=== PATIENT | male | born 1955 | race Caucasian/White ===

== ENCOUNTER → 2016-11-22 | Outpatient (REF) | payer MEDICARE ==
[~2016-11-22] MED LIST: /OXCA30TA OR; ACET50TA PO; ASPI-85 PO; ASPI1TAB PO; ASPI325T OR; ASPI81TA7 PO; CARV6.25 PO; CIPR500T3 PO; CLOP75TA2 PO; CORE6.25 PO; DEPA500T PO; FLOM5CAP PO; FOLI1TAB86 PO; KEPP1000 PO; LASI20TA PO; LISI-542 PO; MULTIVIT PO; NITR0.4D6 SL; OXCA300T PO; PERC5TAB8 PO; PERC7.5T8 PO; PLAV75TA2 PO; SPIR25TA2 PO; TRAZO50TA PO; TRIL600T PO; VITA100066 PO; VITA100T60 PO; VITA250011 SL; VITMTA PO; VYTO10TA41 PO; ZETI10TA2 PO; ZETI10TA21 PO; ZOCO20TA PO; vit b12 PO; vit d PO; vytorin
[2016-11-22 13:10] LABS: BASO % 0.6 % (0.0-1.0); EOS # 0.1 K/mm3 (0.0-0.50); EOS % 1.5 % (0.0-3.0); LARGE UNSTAINED CELL # 0.1 K/mm3 (0.0-0.4); LARGE UNSTAINED CELL % 1.4 % (0.0-4.0); LYMPH # 1.9 K/mm3 (1.5-4.5); LYMPH % 25.4 % (24.0-44.0); MEAN CORPUSCULAR HEMOGLOBIN 30.6 pg (27.0-33.0); MEAN CORPUSCULAR HGB CONC 33.2 g/dl (32.0-36.5); MEAN CORPUSCULAR VOLUME 92.1 fl (80.0-96.0); MONO # 0.4 K/mm3 (0.0-0.8); MONO % 5.9 % (0.0-5.0); NEUTROPHILS # 4.7 K/mm3 (1.8-7.7); NEUTROPHILS % 65.2 % (36.0-66.0); PLATELET COUNT, AUTOMATED 130 k/mm3 (150-450); RED CELL DISTRIBUTION WIDTH 13.4 % (11.5-14.5); WHITE BLOOD COUNT 7.2 K/mm3 (4.0-10.0)
[2016-11-22 13:23] LABS: ALBUMIN 4.6 GM/DL (3.2-5.2); ALBUMIN/GLOBULIN RATIO 1.48 (1.00-1.93); ALKALINE PHOSPHATASE 106 U/L (45-117); ALT/SGPT 11 U/L (12-78); ANION GAP 8 MEQ/L (8-16); AST/SGOT 19 U/L (15-37); BILIRUBIN,TOTAL 0.5 MG/DL (0.2-1.0); BLOOD UREA NITROGEN 29 MG/DL (7-18); CALCIUM LEVEL 9.2 MG/DL (8.5-10.1); CARBON DIOXIDE LEVEL 28 MEQ/L (21-32); CHLORIDE LEVEL 101 MEQ/L (98-107); CHOLESTEROL LEVEL 165 MG/DL (<200); CREATININE FOR GFR 1.02 MG/DL (0.70-1.30); GLOMERULAR FILTRATION RATE > 60.0 (>56); GLUCOSE, FASTING 98 MG/DL (70-105); MAGNESIUM LEVEL 2.4 MG/DL (1.8-2.4); POTASSIUM SERUM 4.4 MEQ/L (3.5-5.1); SODIUM LEVEL 137 MEQ/L (136-145); TOTAL PROTEIN 7.7 GM/DL (6.4-8.2); TRIGLYCERIDES LEVEL 82 MG/DL (<150)
== END ==
LOC: M SFHCPLAZ 08:56
PROVIDERS: ATTEND Family Medicine
DX: I50.22 Chronic systolic (congestive) heart failure (principal); E78.2 Mixed hyperlipidemia; R73.01 Impaired fasting glucose; G40.909 Epilepsy, unspecified, not intractable, without status epilepticus

== ENCOUNTER → 2017-01-01 | Outpatient (CLI) | payer MEDICARE ==
--- NOTE | 2017-01-01 09:47 | REP ---
Right upper quadrant sonography: History: Alcoholic liver disease. Comparison sonography June 30, 2016. Findings: Scanning through the right upper quadrant of the abdomen shows a normal sized thin-walled gallbladder without evidence of stone or polyp. Common bile duct is normal measuring 0.6 cm in greatest diameter. There is a 2.1 x 1.0 x 2.4 cm cyst in the posterior segment right lobe of the liver. This is visible on CT study from July 10, 2016. No other focal liver lesion is seen. There is no evidence of ascites today. The tail of the pancreas is obscured by abdominal gas. No pancreatic morphologic abnormality is seen. The right kidney measures 10.7 x 5.7 x 5.6 cm. No significant renal abnormality. Impression: There is improvement noted in that previously noted ascites is no longer apparent. A stable 2.4 cm cyst is seen in the right lobe of the liver. No other abnormality. Signed by Carl Salmeron MD 01/01/2017 12:08 P
== END ==
LOC: M RAD 07:58
PROVIDERS: ATTEND Family Medicine
DX: K70.9 Alcoholic liver disease, unspecified (principal)

== ENCOUNTER → 2017-04-16 | Outpatient (REF) | payer MEDICARE ==
[~2017-04-16] MED LIST changes: +KEPP10002 PO; -ZETI10TA2 PO; +ZETI10TA30 PO
[2017-04-16 11:51] LABS: EOS % 0.9 % (0.0-3.0); LARGE UNSTAINED CELL # 0.1 K/mm3 (0.0-0.4); LARGE UNSTAINED CELL % 1.8 % (0.0-4.0); LYMPH # 1.5 K/mm3 (1.5-4.5); LYMPH % 30.5 % (24.0-44.0); MEAN CORPUSCULAR HGB CONC 34.2 g/dl (32.0-36.5); MEAN CORPUSCULAR VOLUME 87.8 fl (80.0-96.0); MONO # 0.3 K/mm3 (0.0-0.8); NEUTROPHILS # 2.8 K/mm3 (1.8-7.7); NEUTROPHILS % 59.8 % (36.0-66.0); PLATELET COUNT, AUTOMATED 143 k/mm3 (150-450); RED CELL DISTRIBUTION WIDTH 12.9 % (11.5-14.5); WHITE BLOOD COUNT 4.6 K/mm3 (4.0-10.0)
[2017-04-16 11:57] LABS: INR 1.21
[2017-04-16 12:13] LABS: FERRITIN 133 NG/ML (26-388); PERCENT SATURATION 34.2 % (19.7-37.4); TOTAL IRON BINDING CAPACITY 322 UG/DL (250-450)
== END ==
LOC: M SFHCPLAZ 08:33
PROVIDERS: ATTEND Family Medicine
DX: K70.9 Alcoholic liver disease, unspecified (principal); E53.8 Deficiency of other specified B group vitamins; G40.909 Epilepsy, unspecified, not intractable, without status epilepticus

== ENCOUNTER → 2017-08-28 | Outpatient (REF) | payer MEDICARE ==
[2017-08-28 12:23] LABS: BASO % 0.6 % (0.0-1.0); EOS % 0.7 % (0.0-3.0); IMMATURE GRANULOCYTE % 0.4 % (0-0); LYMPH # 1.5 10^3/uL (1.5-4.5); LYMPH % 28.8 % (24.0-44.0); MEAN CORPUSCULAR HEMOGLOBIN 29.8 pg (27.0-33.0); MEAN CORPUSCULAR HGB CONC 34.7 g/dl (32.0-36.5); MEAN CORPUSCULAR VOLUME 85.9 fl (80.0-96.0); MONO # 0.4 10^3/uL (0.0-0.8); MONO % 8.1 % (0.0-5.0); NEUTROPHILS # 3.3 10^3/uL (1.8-7.7); NEUTROPHILS % 61.4 % (36.0-66.0); PLATELET COUNT, AUTOMATED 149 10^3/uL (150-450); RED CELL DISTRIBUTION WIDTH 13.3 % (11.5-14.5); WHITE BLOOD COUNT 5.3 10^3/uL (4.0-10.0)
[2017-08-28 12:44] LABS: VITAMIN B12 LEVEL > 2000 PG/ML (247-911)
[2017-08-28 12:54] LABS: ALBUMIN 4.4 GM/DL (3.2-5.2); ALBUMIN/GLOBULIN RATIO 1.52 (1.00-1.93); ALKALINE PHOSPHATASE 98 U/L (45-117); ALT/SGPT 12 U/L (12-78); ANION GAP 8 MEQ/L (8-16); AST/SGOT 20 U/L (7-37); BILIRUBIN,TOTAL 0.5 MG/DL (0.2-1.0); BLOOD UREA NITROGEN 12 MG/DL (7-18); CALCIUM LEVEL 9.1 MG/DL (8.8-10.2); CARBON DIOXIDE LEVEL 26 MEQ/L (21-32); CHLORIDE LEVEL 101 MEQ/L (98-107); CHOLESTEROL LEVEL 136 MG/DL (<200); CREATININE FOR GFR 0.78 MG/DL (0.70-1.30); FERRITIN 107 NG/ML (26-388); GLOMERULAR FILTRATION RATE > 60.0 (>49); GLUCOSE, FASTING 89 MG/DL (80-110); PERCENT SATURATION 22.4 % (19.7-50.0); POTASSIUM SERUM 4.6 MEQ/L (3.5-5.1); SODIUM LEVEL 135 MEQ/L (136-145); TOTAL IRON BINDING CAPACITY 335 UG/DL (250-450); TOTAL PROTEIN 7.3 GM/DL (6.4-8.2); TRIGLYCERIDES LEVEL 60 MG/DL (<150)
== END ==
LOC: M SFHCPLAZ 08:40
PROVIDERS: ATTEND Family Medicine
DX: G40.909 Epilepsy, unspecified, not intractable, without status epilepticus (principal); E78.2 Mixed hyperlipidemia; D50.9 Iron deficiency anemia, unspecified; N40.1 Benign prostatic hyperplasia with lower urinary tract symptoms; E53.8 Deficiency of other specified B group vitamins; Z79.899 Other long term (current) drug therapy
CPT/HCPCS: 36415; 80053; 80061; 82550; 82607; 82728; 83036; 83550; 85025; 86140; G0103

== ENCOUNTER → 2017-12-11 | Outpatient (REF) | payer MEDICARE ==
[2017-12-11 11:12] LABS: BASO % 0.5 % (0.0-1.0); EOS # 0.1 10^3/uL (0.0-0.50); EOS % 0.9 % (0.0-3.0); HEMATOCRIT 42.7 % (42.0-52.0); HEMOGLOBIN 14.5 g/dl (14.0-18.0); IMMATURE GRANULOCYTE % 0.5 % (0-3.0); LYMPH # 1.9 10^3/uL (1.5-4.5); LYMPH % 28.5 % (24.0-44.0); MEAN CORPUSCULAR HEMOGLOBIN 29.4 pg (27.0-33.0); MEAN CORPUSCULAR VOLUME 86.6 fl (80.0-96.0); MONO # 0.5 10^3/uL (0.0-0.8); MONO % 7.7 % (0.0-5.0); NEUTROPHILS % 61.9 % (36.0-66.0); PLATELET COUNT, AUTOMATED 153 10^3/uL (150-450); RED BLOOD COUNT 4.93 10^6/uL (4.30-6.10); RED CELL DISTRIBUTION WIDTH 13.3 % (11.5-14.5); WHITE BLOOD COUNT 6.5 10^3/uL (4.0-10.0)
[2017-12-11 11:23] LABS: ALBUMIN 4.5 GM/DL (3.2-5.2); ALBUMIN/GLOBULIN RATIO 1.36 (1.00-1.93); ALKALINE PHOSPHATASE 104 U/L (45-117); ALT/SGPT 11 U/L (12-78); ANION GAP 8 MEQ/L (8-16); AST/SGOT 18 U/L (7-37); BILIRUBIN,TOTAL 0.7 MG/DL (0.2-1.0); BLOOD UREA NITROGEN 17 MG/DL (7-18); CALCIUM LEVEL 9.4 MG/DL (8.8-10.2); CARBON DIOXIDE LEVEL 27 MEQ/L (21-32); CHLORIDE LEVEL 97 MEQ/L (98-107); CREATININE FOR GFR 0.84 MG/DL (0.70-1.30); FERRITIN 76 NG/ML (26-388); GLOMERULAR FILTRATION RATE > 60.0 (>49); GLUCOSE, FASTING 87 MG/DL (70-100); IRON (FE) 106 UG/DL (65-175); MAGNESIUM LEVEL 2.1 MG/DL (1.8-2.4); PERCENT SATURATION 28.9 % (19.7-50.0); POTASSIUM SERUM 4.6 MEQ/L (3.5-5.1); SODIUM LEVEL 132 MEQ/L (136-145); TOTAL IRON BINDING CAPACITY 367 UG/DL (250-450); TOTAL PROTEIN 7.8 GM/DL (6.4-8.2)
[2017-12-11 11:24] LABS: HEMATOCRIT 42.7 % (42.0-52.0)
[2017-12-11 13:18] LABS: PRETREATED FOLATE FOR RBCFOL 13.8 NG/ML; RBC FOLATE 678.7 NG/ML (280-791)
== END ==
LOC: M SFHCPLAZ 08:26
DX: K70.9 Alcoholic liver disease, unspecified (principal); D50.9 Iron deficiency anemia, unspecified; G40.909 Epilepsy, unspecified, not intractable, without status epilepticus; I10 Essential (primary) hypertension; E53.8 Deficiency of other specified B group vitamins
CPT/HCPCS: 83550

== ENCOUNTER → 2018-04-11 | Outpatient (REF) | payer MEDICARE ==
[2018-04-11 12:47] LABS: BASO % 0.4 % (0.0-1.0); EOS # 0.1 10^3/uL (0.0-0.50); EOS % 1.4 % (0.0-3.0); HEMATOCRIT 40.7 % (42.0-52.0); HEMOGLOBIN 14.2 g/dl (13.5-17.5); IMMATURE GRANULOCYTE % 0.4 % (0-3.0); LYMPH # 1.5 10^3/uL (1.5-4.5); MEAN CORPUSCULAR HEMOGLOBIN 29.8 pg (27.0-33.0); MEAN CORPUSCULAR HGB CONC 34.9 g/dl (32.0-36.5); MEAN CORPUSCULAR VOLUME 85.3 fl (80.0-96.0); MONO # 0.4 10^3/uL (0.0-0.8); MONO % 7.7 % (0.0-5.0); NEUTROPHILS % 60.1 % (36.0-66.0); PLATELET COUNT, AUTOMATED 155 10^3/uL (150-450); RED BLOOD COUNT 4.77 10^6/uL (4.30-6.10); RED CELL DISTRIBUTION WIDTH 13.2 % (11.5-14.5)
[2018-04-11 13:08] LABS: VITAMIN B12 LEVEL 1806 PG/ML (247-911)
[2018-04-11 13:20] LABS: ALBUMIN 4.3 GM/DL (3.2-5.2); ALBUMIN/GLOBULIN RATIO 1.54 (1.00-1.93); ALKALINE PHOSPHATASE 100 U/L (45-117); ALT/SGPT 15 U/L (12-78); ANION GAP 8 MEQ/L (8-16); AST/SGOT 13 U/L (7-37); BILIRUBIN,TOTAL 0.6 MG/DL (0.2-1.0); BLOOD UREA NITROGEN 10 MG/DL (7-18); C REACTIVE PROTEIN QUANTITATIV < 0.30 MG/DL (0.00-0.30); CALCIUM LEVEL 9.1 MG/DL (8.8-10.2); CARBON DIOXIDE LEVEL 27 MEQ/L (21-32); CHLORIDE LEVEL 95 MEQ/L (98-107); CHOLESTEROL LEVEL 130 MG/DL (<200); CHOLESTEROL RISK RATIO 2.131 (<5); CPK CREATINE PHOSPHOKINASE 133 U/L (39-308); CREATININE FOR GFR 0.73 MG/DL (0.70-1.30); GLOMERULAR FILTRATION RATE > 60.0 (>49); GLUCOSE, FASTING 88 MG/DL (70-100); HDL CHOLESTEROL 61 MG/DL (>40); LDL CHOLESTEROL 58.6 MG/DL (<100); NON-HDL-C 69 MG/DL; POTASSIUM SERUM 4.6 MEQ/L (3.5-5.1); PSA SCREENING 0.16 NG/ML (< 4.0); SODIUM LEVEL 130 MEQ/L (136-145); TOTAL PROTEIN 7.1 GM/DL (6.4-8.2); TRIGLYCERIDES LEVEL 52 MG/DL (<150)
[2018-04-11 13:53] LABS: ESTIMATED AVERAGE GLUCOSE 128 MG/DL (60-110); HEMOGLOBIN A1c 6.1 %
[2018-04-15 08:06] LABS: LEVETIRACETAM (KEPPRA) 31.4 ug/mL (10.0-40.0)
[2018-04-15 08:06] LABS: OXCARBAZEPINE 38 ug/mL (10-35)
== END ==
LOC: M SFHCPLAZ 08:24
DX: G40.909 Epilepsy, unspecified, not intractable, without status epilepticus (principal); R73.01 Impaired fasting glucose; Z12.5 Encounter for screening for malignant neoplasm of prostate; E53.8 Deficiency of other specified B group vitamins; Z79.899 Other long term (current) drug therapy
CPT/HCPCS: 82550

== ENCOUNTER 2018-05-21 21:56 | Emergency (ER) | payer MEDICARE ==
[2018-05-21] MEDS ORDERED: ONDANSETRON 4MG/2ML VIAL (J2405) As Ordered (22:29)
[2018-05-22] MEDS: NS 1,000 ML IV (00:15)
[2018-05-22] MEDS: ONDANSETRON 4MG/2ML VIAL (J2405) IV (00:15)
[2018-05-22 00:43] LABS: BASO % 0.4 % (0.0-1.0); EOS # 0.1 10^3/uL (0.0-0.50); HEMATOCRIT 37.5 % (42.0-52.0); HEMOGLOBIN 13.7 g/dl (13.5-17.5); IMMATURE GRANULOCYTE % 0.5 % (0-3.0); LYMPH # 2.2 10^3/uL (1.5-4.5); LYMPH % 22.4 % (24.0-44.0); MEAN CORPUSCULAR HEMOGLOBIN 30.2 pg (27.0-33.0); MEAN CORPUSCULAR HGB CONC 36.5 g/dl (32.0-36.5); MEAN CORPUSCULAR VOLUME 82.6 fl (80.0-96.0); MONO # 0.5 10^3/uL (0.0-0.8); NEUTROPHILS % 70.7 % (36.0-66.0); PLATELET COUNT, AUTOMATED 146 10^3/uL (150-450); RED BLOOD COUNT 4.54 10^6/uL (4.30-6.10); RED CELL DISTRIBUTION WIDTH 12.9 % (11.5-14.5); WHITE BLOOD COUNT 9.9 10^3/uL (4.0-10.0)
[2018-05-22 00:53] LABS: ALBUMIN 4.2 GM/DL (3.2-5.2); ALBUMIN/GLOBULIN RATIO 1.31 (1.00-1.93); ALKALINE PHOSPHATASE 91 U/L (45-117); ALT/SGPT 12 U/L (12-78); ANION GAP 12 MEQ/L (8-16); AST/SGOT 23 U/L (7-37); BILIRUBIN,DIRECT 0.2 MG/DL (0.0-0.2); BILIRUBIN,TOTAL 0.7 MG/DL (0.2-1.0); BLOOD UREA NITROGEN 11 MG/DL (7-18); CALCIUM LEVEL 8.7 MG/DL (8.8-10.2); CARBON DIOXIDE LEVEL 21 MEQ/L (21-32); CHLORIDE LEVEL 88 MEQ/L (98-107); CREATININE FOR GFR 0.63 MG/DL (0.70-1.30); GLOMERULAR FILTRATION RATE > 60.0 (>49); GLUCOSE, FASTING 146 MG/DL (70-100); LIPASE 114 U/L (73-393); POTASSIUM SERUM 4.6 MEQ/L (3.5-5.1); SODIUM LEVEL 121 MEQ/L (136-145); TOTAL PROTEIN 7.4 GM/DL (6.4-8.2)
[2018-05-22] MEDS: MORPHINE 2 MG/ML 1ML SYRINGE (J2270) IV (03:23)
[2018-05-22] MEDS: MECLIZINE 25 MG TABLET PO (03:29)
== END 2018-05-22 03:35 | disposition home or self-care (01) ==
LOC: M ED 05-22 03:35
DX: R42 Dizziness and giddiness (principal); R11.0 Nausea; T45.7X5A Adverse effect of anticoagulant antagonists, vitamin K and other coagulants, initial encounter; X58.XXXA Exposure to other specified factors, initial encounter; Y92.89 Other specified places as the place of occurrence of the external cause; E86.9 Volume depletion, unspecified; I10 Essential (primary) hypertension; I48.91 Unspecified atrial fibrillation; I25.10 Atherosclerotic heart disease of native coronary artery without angina pectoris; E78.5 Hyperlipidemia, unspecified; G40.909 Epilepsy, unspecified, not intractable, without status epilepticus; K74.60 Unspecified cirrhosis of liver; F10.10 Alcohol abuse, uncomplicated; Z79.899 Other long term (current) drug therapy; Z79.01 Long term (current) use of anticoagulants; Z79.82 Long term (current) use of aspirin; F17.210 Nicotine dependence, cigarettes, uncomplicated

== ENCOUNTER 2018-05-23 08:53 | Inpatient (IN) | payer MEDICARE ==
[2018-05-23 10:38] LABS: BASO % 0.4 % (0.0-1.0); EOS # 0.1 10^3/uL (0.0-0.50); HEMOGLOBIN 14.3 g/dl (13.5-17.5); IMMATURE GRANULOCYTE % 0.5 % (0-3.0); LYMPH # 1.4 10^3/uL (1.5-4.5); LYMPH % 18.2 % (24.0-44.0); MEAN CORPUSCULAR HEMOGLOBIN 29.5 pg (27.0-33.0); MEAN CORPUSCULAR HGB CONC 35.8 g/dl (32.0-36.5); MEAN CORPUSCULAR VOLUME 82.6 fl (80.0-96.0); MONO # 0.5 10^3/uL (0.0-0.8); NEUTROPHILS # 5.7 10^3/uL (1.8-7.7); NEUTROPHILS % 72.9 % (36.0-66.0); PLATELET COUNT, AUTOMATED 150 10^3/uL (150-450); RED BLOOD COUNT 4.84 10^6/uL (4.30-6.10); RED CELL DISTRIBUTION WIDTH 12.8 % (11.5-14.5); WHITE BLOOD COUNT 7.8 10^3/uL (4.0-10.0)
[2018-05-23 11:04] LABS: ERYTHROCYTE SEDIMENTATION RATE 3 mm/hr (0-20)
[2018-05-23 11:06] LABS: ANION GAP 9 MEQ/L (8-16); BLOOD UREA NITROGEN 10 MG/DL (7-18); C REACTIVE PROTEIN QUANTITATIV < 0.30 MG/DL (0.00-0.30); CALCIUM LEVEL 8.8 MG/DL (8.8-10.2); CARBON DIOXIDE LEVEL 26 MEQ/L (21-32); CHLORIDE LEVEL 87 MEQ/L (98-107); GLOMERULAR FILTRATION RATE > 60.0 (>49); GLUCOSE, FASTING 104 MG/DL (70-100); SODIUM LEVEL 122 MEQ/L (136-145)
[2018-05-23] MEDS: NS 1,000 ML IV (11:07)
[2018-05-23 11:49] LABS: ALBUMIN 4.6 GM/DL (3.2-5.2); ALBUMIN/GLOBULIN RATIO 1.39 (1.00-1.93); ALKALINE PHOSPHATASE 100 U/L (45-117); ALT/SGPT 11 U/L (12-78); AST/SGOT 22 U/L (7-37); BILIRUBIN,DIRECT 0.3 MG/DL (0.0-0.2); BILIRUBIN,TOTAL 0.9 MG/DL (0.2-1.0); TOTAL PROTEIN 7.9 GM/DL (6.4-8.2)
[2018-05-23 12:17] LABS: FREE T4 0.95 NG/DL (0.76-1.46)
[2018-05-23] MEDS: ONDANSETRON 4MG/2ML VIAL (J2405) IV (12:58)
[2018-05-23 13:31] LABS: OSMOLALITY SERUM 253 MOSM/KG (275-295)
[2018-05-23 13:33] LABS: OSMOLALITY URINE 404 MOSM/KG (500-800)
[2018-05-23 14:15] LABS: SODIUM,RANDOM URINE 117 MEQ/L
[2018-05-23] MEDS ORDERED: ONDANSETRON 4 MG TAB (S0181) PO (17:45)
[2018-05-23] MEDS ORDERED: LORazepam 2 MG/ML VIAL (J2060) IV (17:45)
[2018-05-23] MEDS: PRAVASTATIN 20 MG TAB PO (21:01)
[2018-05-23] MEDS: APIXABAN 5 MG TAB (ELIQUIS) PO (21:01)
[2018-05-23] MEDS: OXcarbazepine 300 MG TAB PO (21:01)
[2018-05-23] MEDS: levETIRAcetam 250MG TABLET (KEPPRA) PO (21:02)
[2018-05-23] MEDS: CARVedilol 3.125 MG TAB PO (21:02)
[2018-05-23] MEDS: traZODone 50 MG TAB PO (23:43)
[2018-05-24 06:16] LABS: HEMOGLOBIN 13.2 g/dl (13.5-17.5); MEAN CORPUSCULAR HEMOGLOBIN 29.5 pg (27.0-33.0); MEAN CORPUSCULAR HGB CONC 35.7 g/dl (32.0-36.5); MEAN CORPUSCULAR VOLUME 82.6 fl (80.0-96.0); PLATELET COUNT, AUTOMATED 111 10^3/uL (150-450); RED BLOOD COUNT 4.48 10^6/uL (4.30-6.10); RED CELL DISTRIBUTION WIDTH 12.9 % (11.5-14.5); WHITE BLOOD COUNT 6.4 10^3/uL (4.0-10.0)
[2018-05-24 06:30] LABS: ANION GAP 12 MEQ/L (8-16); BLOOD UREA NITROGEN 10 MG/DL (7-18); CALCIUM LEVEL 8.3 MG/DL (8.8-10.2); CARBON DIOXIDE LEVEL 23 MEQ/L (21-32); CHLORIDE LEVEL 94 MEQ/L (98-107); CREATININE FOR GFR 0.65 MG/DL (0.70-1.30); GLOMERULAR FILTRATION RATE > 60.0 (>49); GLUCOSE, FASTING 76 MG/DL (70-100); MAGNESIUM LEVEL 1.9 MG/DL (1.8-2.4); SODIUM LEVEL 129 MEQ/L (136-145); URIC ACID 2.6 MG/DL (3.5-7.2)
[2018-05-24] MEDS: ASPIRIN 81 MG ENTERIC TAB PO (08:28)
[2018-05-24] MEDS: levETIRAcetam 250MG TABLET (KEPPRA) PO ×2 (08:28→20:00)
[2018-05-24] MEDS: MULTIVITAMINS/MINERALS THERAP 1 TAB PO (08:28)
[2018-05-24] MEDS: CYANOCOBALAMIN 500 MCG TAB PO (08:29)
[2018-05-24] MEDS: VITAMIN D 1,000 INTERNATIONAL UNITS TABLET PO (08:29)
[2018-05-24] MEDS: FINASTERIDE 5 MG TAB PO (08:29)
[2018-05-24] MEDS: APIXABAN 5 MG TAB (ELIQUIS) PO ×2 (08:29→20:01)
[2018-05-24] MEDS: SPIRONOLACTONE 25 MG TAB PO (08:29)
[2018-05-24] MEDS: CARVedilol 3.125 MG TAB PO ×2 (08:30→20:01)
[2018-05-24] MEDS: LISINOPRIL 5 MG TAB PO (08:31)
[2018-05-24] MEDS: EZETIMIBE 10 MG TAB (ZETIA) PO (08:31)
[2018-05-24] MEDS: OXcarbazepine 300 MG TAB PO ×2 (11:18→20:01)
[2018-05-24] MEDS: ACETAMINOPHEN TAB 650MG DOSE (2X325MG) PO (19:59)
[2018-05-24] MEDS: PRAVASTATIN 20 MG TAB PO (20:00)
[2018-05-24] MEDS: traZODone 50 MG TAB PO (23:18)
[2018-05-25] MEDS: OXcarbazepine 300 MG TAB PO (10:10)
[2018-05-25] MEDS: FINASTERIDE 5 MG TAB PO (10:10)
[2018-05-25] MEDS: CARVedilol 3.125 MG TAB PO (10:10)
[2018-05-25] MEDS: LISINOPRIL 5 MG TAB PO (10:11)
[2018-05-25] MEDS: APIXABAN 5 MG TAB (ELIQUIS) PO (10:11)
[2018-05-25] MEDS: ASPIRIN 81 MG ENTERIC TAB PO (10:11)
[2018-05-25] MEDS: levETIRAcetam 250MG TABLET (KEPPRA) PO (10:11)
[2018-05-25] MEDS: MULTIVITAMINS/MINERALS THERAP 1 TAB PO (10:12)
[2018-05-25] MEDS: SPIRONOLACTONE 25 MG TAB PO (10:12)
[2018-05-25] MEDS: ACETAMINOPHEN TAB 650MG DOSE (2X325MG) PO (10:13)
[2018-05-25] MEDS: VITAMIN D 1,000 INTERNATIONAL UNITS TABLET PO (10:13)
[2018-05-25] MEDS: EZETIMIBE 10 MG TAB (ZETIA) PO (10:13)
[2018-05-25] MEDS: CYANOCOBALAMIN 500 MCG TAB PO (10:13)
[2018-05-25 10:51] LABS: ANION GAP 9 MEQ/L (8-16); BLOOD UREA NITROGEN 9 MG/DL (7-18); CARBON DIOXIDE LEVEL 27 MEQ/L (21-32); CHLORIDE LEVEL 97 MEQ/L (98-107); CREATININE FOR GFR 0.74 MG/DL (0.70-1.30); GLOMERULAR FILTRATION RATE > 60.0 (>49); GLUCOSE, FASTING 109 MG/DL (70-100); POTASSIUM SERUM 3.8 MEQ/L (3.5-5.1); SODIUM LEVEL 133 MEQ/L (136-145)
[2018-05-27 10:51] LABS: OXCARBAZEPINE 59 ug/mL (10-35)
== END 2018-05-25 12:25 | disposition home or self-care (01) | DRG 644 ==
LOC: M ED 08:53 → M ED INP 17:44 → M MSPAV 19:51
DX: E22.2 Syndrome of inappropriate secretion of antidiuretic hormone (principal); I50.22 Chronic systolic (congestive) heart failure; G40.89 Other seizures; I25.5 Ischemic cardiomyopathy; I65.29 Occlusion and stenosis of unspecified carotid artery; I25.10 Atherosclerotic heart disease of native coronary artery without angina pectoris; I11.0 Hypertensive heart disease with heart failure; T42.1X5A Adverse effect of iminostilbenes, initial encounter; E78.5 Hyperlipidemia, unspecified; I48.0 Paroxysmal atrial fibrillation; I69.398 Other sequelae of cerebral infarction; Z79.01 Long term (current) use of anticoagulants; Z79.82 Long term (current) use of aspirin; Z79.899 Other long term (current) drug therapy; Z95.1 Presence of aortocoronary bypass graft; Z87.891 Personal history of nicotine dependence

== ENCOUNTER → 2018-05-27 | Outpatient (REF) | payer MEDICARE ==
[2018-05-28 00:13] LABS: ALBUMIN 4.6 GM/DL (3.2-5.2); ALKALINE PHOSPHATASE 93 U/L (45-117); ALT/SGPT 13 U/L (12-78); ANION GAP 8 MEQ/L (8-16); AST/SGOT 20 U/L (7-37); BILIRUBIN,TOTAL 0.5 MG/DL (0.2-1.0); BLOOD UREA NITROGEN 15 MG/DL (7-18); CALCIUM LEVEL 9.7 MG/DL (8.8-10.2); CARBON DIOXIDE LEVEL 27 MEQ/L (21-32); CHLORIDE LEVEL 99 MEQ/L (98-107); CREATININE FOR GFR 0.86 MG/DL (0.70-1.30); GLOMERULAR FILTRATION RATE > 60.0 (>49); GLUCOSE, FASTING 108 MG/DL (70-100); POTASSIUM SERUM 4.5 MEQ/L (3.5-5.1); SODIUM LEVEL 134 MEQ/L (136-145); TOTAL PROTEIN 7.6 GM/DL (6.4-8.2)
[2018-05-28 00:50] LABS: ALBUMIN/GLOBULIN RATIO 1.53 (1.00-1.93)
[2018-05-30 00:07] LABS: OXCARBAZEPINE 20 ug/mL (10-35)
[2018-05-30 00:07] LABS: LEVETIRACETAM (KEPPRA) 30.4 ug/mL (10.0-40.0)
== END ==
LOC: M SFHCPLAZ 10:43
DX: E87.1 Hypo-osmolality and hyponatremia (principal); G40.909 Epilepsy, unspecified, not intractable, without status epilepticus
CPT/HCPCS: 80053

== ENCOUNTER 2018-05-28 11:46 | Emergency (ER) | payer MEDICARE ==
[2018-05-28] MEDS ORDERED: NITROGLYCERIN 0.4 MG SUBL TABLET SL (12:15)
[2018-05-28] MEDS: NS 1,000 ML IV (12:18)
[2018-05-28] MEDS: ASPIRIN 81 MG CHEW TABLET PO (12:20)
[2018-05-28 12:32] LABS: BASO # 0.1 10^3/uL (0.0-0.2); BASO % 0.9 % (0.0-1.0); EOS # 0.1 10^3/uL (0.0-0.50); EOS % 1.4 % (0.0-3.0); HEMATOCRIT 45.5 % (42.0-52.0); HEMOGLOBIN 15.9 g/dl (13.5-17.5); IMMATURE GRANULOCYTE % 0.3 % (0-3.0); LYMPH # 2.9 10^3/uL (1.5-4.5); LYMPH % 37.7 % (24.0-44.0); MEAN CORPUSCULAR HEMOGLOBIN 29.7 pg (27.0-33.0); MEAN CORPUSCULAR HGB CONC 34.9 g/dl (32.0-36.5); MEAN CORPUSCULAR VOLUME 84.9 fl (80.0-96.0); MONO # 0.7 10^3/uL (0.0-0.8); MONO % 9.6 % (0.0-5.0); NEUTROPHILS # 3.8 10^3/uL (1.8-7.7); NEUTROPHILS % 50.1 % (36.0-66.0); PLATELET COUNT, AUTOMATED 177 10^3/uL (150-450); RED BLOOD COUNT 5.36 10^6/uL (4.30-6.10); RED CELL DISTRIBUTION WIDTH 13.6 % (11.5-14.5); WHITE BLOOD COUNT 7.6 10^3/uL (4.0-10.0)
[2018-05-28 12:53] LABS: INR 1.19; PROTHROMBIN TIME 15.3 SECONDS (12.1-14.4)
[2018-05-28 13:08] LABS: ANION GAP 7 MEQ/L (8-16); BLOOD UREA NITROGEN 15 MG/DL (7-18); CALCIUM LEVEL 9.7 MG/DL (8.8-10.2); CARBON DIOXIDE LEVEL 25 MEQ/L (21-32); CHLORIDE LEVEL 99 MEQ/L (98-107); CPK CREATINE PHOSPHOKINASE 157 U/L (39-308); CREATININE FOR GFR 0.79 MG/DL (0.70-1.30); GLOMERULAR FILTRATION RATE > 60.0 (>49); GLUCOSE, FASTING 102 MG/DL (70-100); MB/CK RELATIVE INDEX 1.97 (< OR =4); NT-PRO BNP 955 PG/ML (<125); POTASSIUM SERUM 4.1 MEQ/L (3.5-5.1); SODIUM LEVEL 131 MEQ/L (136-145); TROPONIN I 0.02 NG/ML (< 0.10)
[2018-05-28] MEDS ORDERED: diphenhydrAMINE INJ 50MG/ML VIAL (J1200) As Ordered (13:26)
[2018-05-28] MEDS ORDERED: METOCLOPRAMIDE INJ 10MG/2ML VIAL (J2765) As Ordered (13:26)
[2018-05-28] MEDS: diphenhydrAMINE INJ 50MG/ML VIAL (J1200) IV (13:31)
[2018-05-28] MEDS: METOCLOPRAMIDE INJ 10MG/2ML VIAL (J2765) IV (13:33)
== END 2018-05-28 14:09 | disposition home or self-care (01) ==
LOC: M ED 11:46
DX: I10 Essential (primary) hypertension (principal); R51 Headache; E78.5 Hyperlipidemia, unspecified; R56.9 Unspecified convulsions; Z95.0 Presence of cardiac pacemaker; Z87.891 Personal history of nicotine dependence; Z79.899 Other long term (current) drug therapy; Z79.82 Long term (current) use of aspirin; Z79.01 Long term (current) use of anticoagulants
CPT/HCPCS: J1200

== ENCOUNTER → 2018-06-07 | Outpatient (REF) | payer MEDICARE ==
[2018-06-07 10:58] LABS: BASO % 0.5 % (0.0-1.0); EOS # 0.1 10^3/uL (0.0-0.50); EOS % 0.8 % (0.0-3.0); HEMATOCRIT 46.4 % (42.0-52.0); HEMOGLOBIN 15.6 g/dl (13.5-17.5); IMMATURE GRANULOCYTE % 0.3 % (0-3.0); LYMPH # 1.7 10^3/uL (1.5-4.5); LYMPH % 27.6 % (24.0-44.0); MEAN CORPUSCULAR HEMOGLOBIN 29.3 pg (27.0-33.0); MEAN CORPUSCULAR HGB CONC 33.6 g/dl (32.0-36.5); MEAN CORPUSCULAR VOLUME 87.2 fl (80.0-96.0); MONO # 0.4 10^3/uL (0.0-0.8); MONO % 6.7 % (0.0-5.0); NEUTROPHILS % 64.1 % (36.0-66.0); PLATELET COUNT, AUTOMATED 173 10^3/uL (150-450); RED BLOOD COUNT 5.32 10^6/uL (4.30-6.10); RED CELL DISTRIBUTION WIDTH 13.1 % (11.5-14.5); WHITE BLOOD COUNT 6.3 10^3/uL (4.0-10.0)
[2018-06-07 10:59] LABS: AMORPHOUS SEDIMENT SMALL (NEGATIVE); APPEARANCE, URINE HAZY (CLEAR); BACTERIA, URINE AUTO NEGATIVE (NEGATIVE); BILIRUBIN, URINE AUTO NEGATIVE (NEGATIVE); BLOOD, URINE BLOOD NEGATIVE (NEGATIVE); COLOR, URINE AMBER (YELLOW); GLUCOSE, URINE (UA) AUTO NEGATIVE (NEGATIVE); KETONE, URINE AUTO NEGATIVE (NEGATIVE); LEUKOCYTE ESTERASE, URINE AUTO NEGATIVE (NEGATIVE); MUCUS, URINE SMALL (NEGATIVE); NITRITE, URINE AUTO NEGATIVE (NEGATIVE); PROTEIN, URINE AUTO NEGATIVE (NEGATIVE); RBC, URINE AUTO 5 /HPF (0-3); SPECIFIC GRAVITY URINE AUTO 1.018 (1.002-1.035); SQUAMOUS EPITHELIAL CELL UR AU 0 /HPF (0-6); UROBILINOGEN, URINE AUTO 0.2 mg/dL (0.0-2.0); WBC, URINE AUTO 1 /HPF (0-3)
[2018-06-07 11:07] LABS: INR 1.16
[2018-06-07 11:08] LABS: PARTIAL THROMBOPLASTIN TIME 31.6 SECONDS (25.4-37.6)
[2018-06-07 11:17] LABS: ALBUMIN 4.8 GM/DL (3.2-5.2); ALBUMIN/GLOBULIN RATIO 1.45 (1.00-1.93); ALKALINE PHOSPHATASE 101 U/L (45-117); ALT/SGPT 14 U/L (12-78); ANION GAP 10 MEQ/L (8-16); AST/SGOT 15 U/L (7-37); BILIRUBIN,TOTAL 0.6 MG/DL (0.2-1.0); BLOOD UREA NITROGEN 11 MG/DL (7-18); CALCIUM LEVEL 9.9 MG/DL (8.8-10.2); CARBON DIOXIDE LEVEL 26 MEQ/L (21-32); CHLORIDE LEVEL 99 MEQ/L (98-107); CREATININE FOR GFR 0.82 MG/DL (0.70-1.30); GLOMERULAR FILTRATION RATE > 60.0 (>49); GLUCOSE, FASTING 91 MG/DL (70-100); POTASSIUM SERUM 4.9 MEQ/L (3.5-5.1); SODIUM LEVEL 135 MEQ/L (136-145); TOTAL PROTEIN 8.1 GM/DL (6.4-8.2)
[2018-06-07 11:28] LABS: MALB URINE SIEMENS 23.8 MG/L
[2018-06-07 11:29] LABS: ALPHA FETOPROTEIN TUMOR QUANT < 1.3 NG/ML (<8.1); ESTIMATED AVERAGE GLUCOSE 117 MG/DL (60-110); HEMOGLOBIN A1c 5.7 %
[2018-06-07 11:34] LABS: MAU/CREAT RATIO 14.1 MCG/MG (0.0-30.0)
[2018-06-08 15:36] LABS: INSULIN LEVEL 10.5 uIU/mL (2.6-24.9)
[2018-06-10 14:36] LABS: LEVETIRACETAM (KEPPRA) 42.4 ug/mL (10.0-40.0)
[2018-06-10 14:36] LABS: OXCARBAZEPINE 19 ug/mL (10-35)
== END ==
LOC: M SFHCPLAZ 09:11
DX: K70.9 Alcoholic liver disease, unspecified (principal); G40.909 Epilepsy, unspecified, not intractable, without status epilepticus; R73.01 Impaired fasting glucose
CPT/HCPCS: 83525

== ENCOUNTER → 2018-09-02 | Outpatient (REF) | payer MEDICARE ==
[~2018-09-02] MED LIST changes: +CARV3.12 PO; +ELIQ5TAB PO; +EPLE25TA PO; +FINA5TAB2 PO; +FLOM0.4C39 PO; -FLOM5CAP PO; +KEPP1TAB2 PO; +LISI10TA4 PO; -OXCA300T PO; +OXCA300T14 PO; +PRAV40TA2 PO; +SPIR-10 PO; -SPIR25TA2 PO; +TRIL1TAB PO; +VITA-193 PO; +VITA10002 PO
[2018-09-02 12:30] LABS: BASO % 0.6 % (0.0-1.0); EOS # 0.1 10^3/uL (0.0-0.50); EOS % 1.3 % (0.0-3.0); HEMATOCRIT 41.7 % (42.0-52.0); HEMOGLOBIN 14.4 g/dl (13.5-17.5); LYMPH # 1.5 10^3/uL (1.5-4.5); LYMPH % 32.1 % (24.0-44.0); MEAN CORPUSCULAR HEMOGLOBIN 29.5 pg (27.0-33.0); MEAN CORPUSCULAR HGB CONC 34.5 g/dl (32.0-36.5); MEAN CORPUSCULAR VOLUME 85.5 fl (80.0-96.0); MONO # 0.3 10^3/uL (0.0-0.8); MONO % 6.4 % (0.0-5.0); NEUTROPHILS # 2.8 10^3/uL (1.8-7.7); NEUTROPHILS % 59.2 % (36.0-66.0); PLATELET COUNT, AUTOMATED 164 10^3/uL (150-450); RED BLOOD COUNT 4.88 10^6/uL (4.30-6.10); WHITE BLOOD COUNT 4.7 10^3/uL (4.0-10.0)
[2018-09-02 12:49] LABS: ALBUMIN 4.4 GM/DL (3.2-5.2); ALT/SGPT 10 U/L (12-78); BILIRUBIN,TOTAL 0.6 MG/DL (0.2-1.0); BLOOD UREA NITROGEN 8 MG/DL (7-18); CALCIUM LEVEL 8.9 MG/DL (8.8-10.2); CARBON DIOXIDE LEVEL 26 MEQ/L (21-32); CHLORIDE LEVEL 91 MEQ/L (98-107); GLOMERULAR FILTRATION RATE > 60.0 (>49); GLUCOSE, FASTING 82 MG/DL (70-100); MAGNESIUM LEVEL 1.9 MG/DL (1.8-2.4); POTASSIUM SERUM 4.5 MEQ/L (3.5-5.1); PTH INTACT 27.9 PG/ML (18.5-88.0); SODIUM LEVEL 127 MEQ/L (136-145); TOTAL PROTEIN 7.4 GM/DL (6.4-8.2)
[2018-09-05 00:31] LABS: LEVETIRACETAM (KEPPRA) 41.9 ug/mL (10.0-40.0)
== END ==
LOC: M SFHCPLAZ 08:19
PROVIDERS: ATTEND Family Medicine
DX: E78.2 Mixed hyperlipidemia (principal); I10 Essential (primary) hypertension; I25.10 Atherosclerotic heart disease of native coronary artery without angina pectoris; D69.6 Thrombocytopenia, unspecified

== ENCOUNTER → 2018-09-11 | Outpatient (REF) | payer MEDICARE ==
[~2018-09-11] MED LIST changes: -LASI20TA PO; +LASI20TA3 PO
[2018-09-11 10:28] LABS: ALBUMIN 4.5 GM/DL (3.2-5.2); ALT/SGPT 12 U/L (12-78); BILIRUBIN,TOTAL 0.7 MG/DL (0.2-1.0); BLOOD UREA NITROGEN 13 MG/DL (7-18); CALCIUM LEVEL 9.7 MG/DL (8.8-10.2); CARBON DIOXIDE LEVEL 29 MEQ/L (21-32); CHLORIDE LEVEL 96 MEQ/L (98-107); CREATININE FOR GFR 0.78 MG/DL (0.70-1.30); GLOMERULAR FILTRATION RATE > 60.0 (>49); GLUCOSE, FASTING 94 MG/DL (70-100); POTASSIUM SERUM 4.6 MEQ/L (3.5-5.1); SODIUM LEVEL 131 MEQ/L (136-145); TOTAL PROTEIN 7.4 GM/DL (6.4-8.2)
[2018-09-13 14:14] LABS: LEVETIRACETAM (KEPPRA) 42.8 ug/mL (10.0-40.0)
== END ==
LOC: M SFHCPLAZ 08:19
PROVIDERS: ATTEND Family Medicine
DX: G40.909 Epilepsy, unspecified, not intractable, without status epilepticus (principal)

== ENCOUNTER → 2018-11-21 | Outpatient (REF) | payer MEDICARE ==
[2018-11-21 13:13] LABS: BASO % 0.3 % (0.0-1.0); EOS # 0.1 10^3/uL (0.0-0.50); EOS % 1.7 % (0.0-3.0); HEMATOCRIT 44.7 % (42.0-52.0); HEMOGLOBIN 15.1 g/dl (13.5-17.5); LYMPH # 1.9 10^3/uL (1.5-4.5); LYMPH % 33.2 % (24.0-44.0); MEAN CORPUSCULAR HEMOGLOBIN 29.2 pg (27.0-33.0); MEAN CORPUSCULAR HGB CONC 33.8 g/dl (32.0-36.5); MEAN CORPUSCULAR VOLUME 86.3 fl (80.0-96.0); MONO # 0.4 10^3/uL (0.0-0.8); MONO % 7.4 % (0.0-5.0); NEUTROPHILS # 3.3 10^3/uL (1.8-7.7); NEUTROPHILS % 57.1 % (36.0-66.0); PLATELET COUNT, AUTOMATED 144 10^3/uL (150-450); RED BLOOD COUNT 5.18 10^6/uL (4.30-6.10); WHITE BLOOD COUNT 5.8 10^3/uL (4.0-10.0)
[2018-11-21 13:56] LABS: ALBUMIN 4.4 GM/DL (3.2-5.2); ALT/SGPT 10 U/L (12-78); BILIRUBIN,TOTAL 0.5 MG/DL (0.2-1.0); BLOOD UREA NITROGEN 11 MG/DL (7-18); CARBON DIOXIDE LEVEL 25 MEQ/L (21-32); CHLORIDE LEVEL 96 MEQ/L (98-107); CREATININE FOR GFR 0.66 MG/DL (0.70-1.30); FREE T4 0.96 NG/DL (0.76-1.46); GLOMERULAR FILTRATION RATE > 60.0 (>49); GLUCOSE, FASTING 87 MG/DL (70-100); POTASSIUM SERUM 4.5 MEQ/L (3.5-5.1); SODIUM LEVEL 130 MEQ/L (136-145); THYROID STIMULATING HORMONE 0.847 uIU/ML (0.358-3.740); TOTAL PROTEIN 7.6 GM/DL (6.4-8.2)
[2018-11-21 14:44] LABS: HEMOGLOBIN A1c 6.1 %
[2018-11-25 00:10] LABS: LEVETIRACETAM (KEPPRA) 44.8 ug/mL (10.0-40.0)
== END ==
LOC: M SFHCPLAZ 09:17
PROVIDERS: ATTEND Family Medicine
DX: E78.2 Mixed hyperlipidemia (principal); G40.909 Epilepsy, unspecified, not intractable, without status epilepticus; D69.6 Thrombocytopenia, unspecified; I48.0 Paroxysmal atrial fibrillation

== ENCOUNTER → 2019-03-05 | Outpatient (REF) | payer MEDICARE ==
[~2019-03-05] MED LIST changes: -/OXCA30TA OR; -ACET50TA PO; -ASPI1TAB PO; +ASPI81TA26 PO; +MAPA500T17 PO; +TRAZ1TAB10 PO; -TRAZO50TA PO; +TRIL1TAB OR
[2019-03-05 11:28] LABS: BASO % 0.8 % (0.0-1.0); EOS # 0.1 10^3/uL (0.0-0.50); EOS % 1.9 % (0.0-3.0); HEMOGLOBIN 15.1 g/dl (13.5-17.5); LYMPH # 1.5 10^3/uL (1.5-4.5); LYMPH % 29.9 % (24.0-44.0); MEAN CORPUSCULAR HEMOGLOBIN 29.5 pg (27.0-33.0); MEAN CORPUSCULAR HGB CONC 33.6 g/dl (32.0-36.5); MEAN CORPUSCULAR VOLUME 88.1 fl (80.0-96.0); MONO # 0.4 10^3/uL (0.0-0.8); MONO % 7.8 % (0.0-5.0); NEUTROPHILS # 3.1 10^3/uL (1.8-7.7); NEUTROPHILS % 59.2 % (36.0-66.0); PLATELET COUNT, AUTOMATED 147 10^3/uL (150-450); RED BLOOD COUNT 5.11 10^6/uL (4.30-6.10); WHITE BLOOD COUNT 5.2 10^3/uL (4.0-10.0)
[2019-03-05 11:35] LABS: ALBUMIN 4.5 GM/DL (3.2-5.2); ALT/SGPT 11 U/L (12-78); BILIRUBIN,TOTAL 0.5 MG/DL (0.2-1.0); BLOOD UREA NITROGEN 10 MG/DL (7-18); CALCIUM LEVEL 9.5 MG/DL (8.8-10.2); CARBON DIOXIDE LEVEL 28 MEQ/L (21-32); CHLORIDE LEVEL 96 MEQ/L (98-107); CHOLESTEROL LEVEL 141 MG/DL (<200); CHOLESTEROL RISK RATIO 2.104 (<5); CREATININE FOR GFR 0.72 MG/DL (0.70-1.30); GLOMERULAR FILTRATION RATE > 60.0 (>49); GLUCOSE, FASTING 90 MG/DL (70-100); HDL CHOLESTEROL 67 MG/DL (>40); LDL CHOLESTEROL 63 MG/DL (<100); NON-HDL-C 74 MG/DL; POTASSIUM SERUM 4.6 MEQ/L (3.5-5.1); SODIUM LEVEL 130 MEQ/L (136-145); TOTAL PROTEIN 7.8 GM/DL (6.4-8.2); TRIGLYCERIDES LEVEL 55 MG/DL (<150)
[2019-03-05 11:45] LABS: HEMOGLOBIN A1c 6.2 %
[2019-03-11 14:08] LABS: INSULIN LEVEL 9.4 uIU/mL (2.6-24.9); LEVETIRACETAM (KEPPRA) 45.9 ug/mL (10.0-40.0)
== END ==
LOC: M SFHCPLAZ 07:57
PROVIDERS: ATTEND Family Medicine
DX: E78.2 Mixed hyperlipidemia (principal); R73.01 Impaired fasting glucose; I10 Essential (primary) hypertension; G40.909 Epilepsy, unspecified, not intractable, without status epilepticus

== ENCOUNTER → 2019-03-07 | Outpatient (CLI) | payer MEDICARE ==
--- NOTE | 2019-03-07 09:43 | REP ---
Abdominal right upper quadrant ultrasound for alcoholic liver disease: A comparison is 12/27/2017. There is no cholelithiasis, gallbladder wall thickening or pericholecystic fluid. There is no intrahepatic or extrahepatic biliary duct dilatation. The common biliary duct measures 4.5 mm in diameter. There is a cyst inferiorly in the right lobe of the liver measuring 1.6 by 0.5 x 2.8 cm, not significantly changed from the prior study. The hepatic parenchyma is otherwise homogeneous and unremarkable. There are no solid hepatic masses. The visualized portions of the pancreas are unremarkable. The right kidney is normal size measuring 11.1 x 5.4 x 4.6 cm. The right renal cortex is hyperechoic, compatible with medical renal disease. There is no right renal calculus, hydronephrosis, mass or cyst. There is no right upper quadrant abdominal ascites. Impression: There is a cyst in the right lobe of the liver, unchanged. Right renal cortex is hyperechoic, compatible with medical renal disease. Otherwise, negative abdominal right upper quadrant ultrasound. Electronically Signed by Adalid Gordon MD 03/07/2019 09:35 A
== END ==
LOC: M RAD 07:44
PROVIDERS: ATTEND Family Medicine
DX: K70.9 Alcoholic liver disease, unspecified (principal); K76.89 Other specified diseases of liver

== ENCOUNTER → 2019-04-24 | Outpatient (CLI) | payer MEDICARE ==
[~2019-04-24] MED LIST changes: +CYAN100049 PO; +CYAN500T9 PO; -VITA-193 PO; -VITA10002 PO; +ZETI10TA16 PO; -ZETI10TA30 PO
--- NOTE | 2019-04-30 14:27 | DEXA ---
AP SPINE L1 - L4 1.345 1.2 1.3 LT FEMUR TOTAL 0.921 -0.7 -0.8 LT NECK 0.965 -0.5 0.2 RT FEMUR TOTAL 0.968 -0.3 -0.4 RT NECK 1.020 -0.1 0.6 TOTAL BODY TOTAL OTHER COMMENTS: Normal bone densitometry of the spine and hips. FOLLOW-UP: Recommendation for the next bone density exam: 5 years. MTDD
== END ==
LOC: M WHC 10:23
PROVIDERS: ATTEND Physician Assistant Medical
DX: M85.80 Other specified disorders of bone density and structure, unspecified site (principal); Z87.310 Personal history of (healed) osteoporosis fracture

== ENCOUNTER → 2019-08-13 | Outpatient (CLI) | payer MEDICARE ==
[2019-08-13 11:28] LABS: BASO # 0.1 10^3/uL (0.0-0.2); BASO % 0.9 % (0.0-1.0); EOS # 0.2 10^3/uL (0.0-0.5); EOS % 2.8 % (0.0-3.0); HEMATOCRIT 41.5 % (42.0-52.0); HEMOGLOBIN 14.4 g/dl (13.5-17.5); LYMPH # 1.6 10^3/uL (1.5-5.0); LYMPH % 28.3 % (24.0-44.0); MEAN CORPUSCULAR HEMOGLOBIN 29.8 pg (27.0-33.0); MEAN CORPUSCULAR HGB CONC 34.7 g/dl (32.0-36.5); MEAN CORPUSCULAR VOLUME 85.9 fl (80.0-96.0); MONO # 0.5 10^3/uL (0.0-0.8); MONO % 8.2 % (0.0-5.0); NEUTROPHILS # 3.4 10^3/uL (1.5-8.5); NEUTROPHILS % 59.5 % (36.0-66.0); PLATELET COUNT, AUTOMATED 157 10^3/uL (150-450); RED BLOOD COUNT 4.83 10^6/uL (4.30-6.10); WHITE BLOOD COUNT 5.8 10^3/uL (4.0-10.0)
[2019-08-13 11:29] LABS: APPEARANCE, URINE CLEAR (CLEAR); BACTERIA, URINE AUTO NEGATIVE (NEGATIVE); BILIRUBIN, URINE AUTO NEGATIVE (NEGATIVE); BLOOD, URINE BLOOD NEGATIVE (NEGATIVE); COLOR, URINE YELLOW (YELLOW); GLUCOSE, URINE (UA) AUTO NEGATIVE (NEGATIVE); KETONE, URINE AUTO NEGATIVE (NEGATIVE); LEUKOCYTE ESTERASE, URINE AUTO NEGATIVE (NEGATIVE); NITRITE, URINE AUTO NEGATIVE (NEGATIVE); PROTEIN, URINE AUTO NEGATIVE (NEGATIVE); RBC, URINE AUTO 0 /HPF (0-3); SPECIFIC GRAVITY URINE AUTO 1.011 (1.002-1.035); SQUAMOUS EPITHELIAL CELL UR AU 0 /HPF (0-6); UROBILINOGEN, URINE AUTO 0.2 mg/dL (0.0-2.0); WBC, URINE AUTO 0 /HPF (0-3)
[2019-08-13 11:56] LABS: INR 1.18; PROTHROMBIN TIME 14.7 SECONDS (11.8-14.0)
[2019-08-13 11:57] LABS: PARTIAL THROMBOPLASTIN TIME 31.5 SECONDS (25.0-38.4)
[2019-08-13 12:08] LABS: CREATININE, URINE 64.7 MG/DL; MALB URINE SIEMENS 8.3 MG/L; MAU/CREAT RATIO 12.8 MCG/MG (0.0-30.0)
[2019-08-13 12:15] LABS: ALBUMIN 4.4 GM/DL (3.2-5.2); ALT/SGPT 20 U/L (12-78); BILIRUBIN,TOTAL 0.7 MG/DL (0.2-1.0); BLOOD UREA NITROGEN 12 MG/DL (7-18); CALCIUM LEVEL 9.3 MG/DL (8.8-10.2); CARBON DIOXIDE LEVEL 28 MEQ/L (21-32); CHLORIDE LEVEL 95 MEQ/L (98-107); CREATININE FOR GFR 0.71 MG/DL (0.70-1.30); GLOMERULAR FILTRATION RATE > 60.0 (>49); GLUCOSE, FASTING 85 MG/DL (70-100); POTASSIUM SERUM 4.8 MEQ/L (3.5-5.1); SODIUM LEVEL 129 MEQ/L (136-145); TOTAL PROTEIN 7.2 GM/DL (6.4-8.2)
[2019-08-16 00:07] LABS: LEVETIRACETAM (KEPPRA) 38.1 ug/mL (10.0-40.0)
== END ==
LOC: M PLALAB 07:59
PROVIDERS: ATTEND Family Medicine
DX: Z12.5 Encounter for screening for malignant neoplasm of prostate (principal); R73.01 Impaired fasting glucose; G40.909 Epilepsy, unspecified, not intractable, without status epilepticus; K70.9 Alcoholic liver disease, unspecified; Z79.82 Long term (current) use of aspirin; Z79.899 Other long term (current) drug therapy
CPT/HCPCS: 36415; 80053; 80180; 80183; 81001; 82043; 82105; 82140; 83036; 85025; 85610; 85730; G0103

== ENCOUNTER → 2019-12-26 | Outpatient (REF) | payer MEDICARE ==
[2019-12-26 17:41] LABS: PTH INTACT 49.2 PG/ML (18.5-88.0); TOTAL 25(OH) VITAMIN D 36.1 NG/ML (30.0-100.0)
[2019-12-26 17:44] LABS: BASO % 0.7 % (0.0-1.0); EOS # 0.1 10^3/uL (0.0-0.5); EOS % 1.6 % (0.0-3.0); HEMATOCRIT 44.3 % (42.0-52.0); HEMOGLOBIN 15.3 g/dl (13.5-17.5); LYMPH # 1.7 10^3/uL (1.5-5.0); LYMPH % 31.3 % (24.0-44.0); MEAN CORPUSCULAR HEMOGLOBIN 30.2 pg (27.0-33.0); MEAN CORPUSCULAR HGB CONC 34.5 g/dl (32.0-36.5); MEAN CORPUSCULAR VOLUME 87.5 fl (80.0-96.0); MONO # 0.5 10^3/uL (0.0-0.8); MONO % 8.4 % (0.0-5.0); NEUTROPHILS # 3.2 10^3/uL (1.5-8.5); NEUTROPHILS % 57.6 % (36.0-66.0); PLATELET COUNT, AUTOMATED 145 10^3/uL (150-450); RED BLOOD COUNT 5.06 10^6/uL (4.30-6.10); WHITE BLOOD COUNT 5.5 10^3/uL (4.0-10.0)
[2019-12-26 17:48] LABS: HEMOGLOBIN A1c 6.3 %
[2019-12-30 00:09] LABS: LEVETIRACETAM (KEPPRA) 29.5 ug/mL (10.0-40.0)
== END ==
LOC: M SFHCPLAZ 11:15
PROVIDERS: ATTEND Family Medicine
DX: E53.8 Deficiency of other specified B group vitamins (principal); G40.909 Epilepsy, unspecified, not intractable, without status epilepticus; R73.01 Impaired fasting glucose; E55.9 Vitamin D deficiency, unspecified
CPT/HCPCS: 36415; 80180; 80183; 82306; 82607; 83036; 83970; 85025; 85046; G0463

== ENCOUNTER → 2020-04-23 | Outpatient (REF) | payer MEDICARE ==
[~2020-04-23] MED LIST changes: +CYAN500T10 PO; -CYAN500T9 PO
[2020-05-22 01:18] LABS: HEMATOCRIT 44.8 % (42.0-52.0); HEMOGLOBIN 15.5 g/dl (13.5-17.5); MEAN CORPUSCULAR HEMOGLOBIN 30.4 pg (27.0-33.0); MEAN CORPUSCULAR HGB CONC 34.6 g/dl (32.0-36.5); MEAN CORPUSCULAR VOLUME 87.8 fl (80.0-96.0); PLATELET COUNT, AUTOMATED 162 10^3/uL (150-450)
[2020-06-09 03:16] LABS: BLOOD UREA NITROGEN 12 MG/DL (7-18); CALCIUM LEVEL 9.3 MG/DL (8.8-10.2); CARBON DIOXIDE LEVEL 28 MEQ/L (21-32); CHLORIDE LEVEL 95 MEQ/L (98-107); GLOMERULAR FILTRATION RATE > 60.0 (>49); GLUCOSE, FASTING 102 MG/DL (70-100); POTASSIUM SERUM 4.4 MEQ/L (3.5-5.1); SODIUM LEVEL 128 MEQ/L (136-145)
== END ==
LOC: M PLALAB 11:50
PROVIDERS: ATTEND Nurse Practitioner Family
DX: Z01.812 Encounter for preprocedural laboratory examination (principal)

== ENCOUNTER → 2020-04-25 | Outpatient (CLI) | payer MEDICAID, MEDICARE | LOC: M LABSMTC 10:00 | PROVIDERS: ATTEND Nurse Practitioner Family | DX: Z11.59 Encounter for screening for other viral diseases (principal); Z20.828 Contact with and (suspected) exposure to other viral communicable diseases | CPT/HCPCS: C9803; U0002 ==

== ENCOUNTER → 2020-05-12 | Outpatient (CLI) | payer MEDICARE ==
[2020-05-12 11:00] LABS: HEMATOCRIT 45.8 % (42.0-52.0); HEMOGLOBIN 15.8 g/dl (13.5-17.5); MEAN CORPUSCULAR HEMOGLOBIN 30.2 pg (27.0-33.0); MEAN CORPUSCULAR HGB CONC 34.5 g/dl (32.0-36.5); MEAN CORPUSCULAR VOLUME 87.6 fl (80.0-96.0); PLATELET COUNT, AUTOMATED 150 10^3/uL (150-450); RED BLOOD COUNT 5.23 10^6/uL (4.30-6.10); WHITE BLOOD COUNT 5.3 10^3/uL (4.0-10.0)
[2020-05-12 11:12] LABS: ALBUMIN 4.5 GM/DL (3.2-5.2); ALT/SGPT 11 U/L (12-78); BILIRUBIN,TOTAL 0.8 MG/DL (0.2-1.0); BLOOD UREA NITROGEN 12 MG/DL (7-18); CALCIUM LEVEL 9.4 MG/DL (8.8-10.2); CARBON DIOXIDE LEVEL 27 MEQ/L (21-32); CHLORIDE LEVEL 96 MEQ/L (98-107); CHOLESTEROL LEVEL 126 MG/DL (<200); CREATININE FOR GFR 0.84 MG/DL (0.70-1.30); FERRITIN 60 NG/ML (26-388); FREE T4 0.89 NG/DL (0.76-1.46); GLOMERULAR FILTRATION RATE > 60.0 (>49); GLUCOSE, FASTING 88 MG/DL (70-100); HDL CHOLESTEROL 60 MG/DL (>40); IRON (FE) 142 UG/DL (65-175); LDL CHOLESTEROL 57 MG/DL (<100); NON-HDL-C 66 MG/DL; NT-PRO BNP 1104 PG/ML (<125); PERCENT SATURATION 39.3 % (19.7-50.0); POTASSIUM SERUM 4.6 MEQ/L (3.5-5.1); SODIUM LEVEL 129 MEQ/L (136-145); TOTAL IRON BINDING CAPACITY 361 UG/DL (250-450); TOTAL PROTEIN 7.3 GM/DL (6.4-8.2); TRIGLYCERIDES LEVEL 43 MG/DL (<150)
[2020-05-12 11:25] LABS: HEMOGLOBIN A1c 6.1 %
== END ==
LOC: M PLALAB 08:07
PROVIDERS: ATTEND Family Medicine
DX: I11.0 Hypertensive heart disease with heart failure (principal); R73.01 Impaired fasting glucose; I50.22 Chronic systolic (congestive) heart failure

== ENCOUNTER → 2020-11-01 | Outpatient (REF) | payer MEDICARE ==
[~2020-11-01] MED LIST changes: -CYAN500T10 PO; -LISI-542 PO; +LISI-898 PO; +LISI10TA22 PO; -LISI10TA4 PO; +VITA500T37 PO
[2020-11-01 15:55] LABS: BASO % 0.5 % (0.0-1.0); EOS # 0.1 10^3/uL (0.0-0.5); EOS % 1.3 % (0.0-3.0); HEMATOCRIT 46.4 % (42.0-52.0); HEMOGLOBIN 15.5 g/dl (13.5-17.5); LYMPH # 1.8 10^3/uL (1.5-5.0); LYMPH % 32.5 % (24.0-44.0); MEAN CORPUSCULAR HEMOGLOBIN 29.1 pg (27.0-33.0); MEAN CORPUSCULAR HGB CONC 33.4 g/dl (32.0-36.5); MEAN CORPUSCULAR VOLUME 87.1 fl (80.0-96.0); MONO # 0.4 10^3/uL (0.0-0.8); MONO % 7.3 % (0.0-8.0); NEUTROPHILS # 3.3 10^3/uL (1.5-8.5); PLATELET COUNT, AUTOMATED 154 10^3/uL (150-450); RED BLOOD COUNT 5.33 10^6/uL (4.30-6.10); WHITE BLOOD COUNT 5.6 10^3/uL (4.0-10.0)
[2020-11-01 16:24] LABS: OSMOLALITY SERUM 267 MOSM/KG (280-301)
[2020-11-01 16:28] LABS: ALBUMIN 4.5 GM/DL (3.2-5.2); ALT/SGPT 14 U/L (12-78); BILIRUBIN,TOTAL 0.7 MG/DL (0.2-1.0); BLOOD UREA NITROGEN 12 MG/DL (7-18); CALCIUM LEVEL 9.3 MG/DL (8.8-10.2); CARBON DIOXIDE LEVEL 28 MEQ/L (21-32); CHLORIDE LEVEL 94 MEQ/L (98-107); CREATININE FOR GFR 0.79 MG/DL (0.70-1.30); FERRITIN 71 NG/ML (26-388); FREE T4 1.04 NG/DL (0.76-1.46); GLOMERULAR FILTRATION RATE > 60.0 (>49); GLUCOSE, FASTING 113 MG/DL (70-100); NT-PRO BNP 1350 PG/ML (<125); POTASSIUM SERUM 4.6 MEQ/L (3.5-5.1); SODIUM LEVEL 129 MEQ/L (136-145); THYROID STIMULATING HORMONE 0.894 uIU/ML (0.358-3.740); TOTAL PROTEIN 7.3 GM/DL (6.4-8.2)
[2020-11-05 08:08] LABS: LEVETIRACETAM (KEPPRA) 34.6 ug/mL (10.0-40.0); OXCARBAZEPINE 26 ug/mL (10-35)
== END ==
LOC: M SFHCPLAZ 13:44
PROVIDERS: ATTEND Family Medicine
DX: I50.22 Chronic systolic (congestive) heart failure (principal); E53.8 Deficiency of other specified B group vitamins; E78.2 Mixed hyperlipidemia; G40.909 Epilepsy, unspecified, not intractable, without status epilepticus; K70.9 Alcoholic liver disease, unspecified; Z12.5 Encounter for screening for malignant neoplasm of prostate
CPT/HCPCS: 36415; 80053; 80180; 80183; 82172; 82728; 83010; 83880; 83883; 83930; 84439; 84443; 85025; G0103; G0463

== ENCOUNTER → 2020-11-10 | Outpatient (CLI) | payer MEDICARE ==
--- NOTE | 2020-11-10 10:31 | REP ---
INDICATION: ALCOHOLIC LIVER DISEASE. COMPARISON: 03/07/2019. TECHNIQUE: Real-time sonographic evaluation of right upper quadrant performed. FINDINGS: The gallbladder demonstrates no evidence of intraluminal sludge or calculi, wall thickening or pericholecystic fluid. There is no intrahepatic or extrahepatic biliary dilatation, common bile duct measures 7 mm in maximum diameter. Echotexture of the liver is heterogeneous with scalloped borders. A cystic structure is seen in the right lobe of the liver 1.5 x 1.4 x 1.1 cm. Visualized pancreas is grossly unremarkable, the body and tail are not well seen due to overlying bowel gas. The right kidney demonstrates no hydronephrosis, with a normal size of 10.7 cm in length. The visualized abdominal aorta is normal in caliber, the mid and distal aspect measures approximately 1.6 cm in AP dimension.No free fluid is seen. IMPRESSION: Heterogeneous echotexture of the liver. Cyst in the right lobe of the liver 1.5 cm. No free fluid. <Electronically signed by Adalid Huerta > 11/10/20 [id number]
== END ==
LOC: M RAD 07:43
PROVIDERS: ATTEND Family Medicine
DX: K76.89 Other specified diseases of liver (principal); K70.9 Alcoholic liver disease, unspecified

== ENCOUNTER → 2020-11-29 | Outpatient (REF) | payer MEDICARE ==
[2020-11-29 10:59] LABS: ALBUMIN 4.5 GM/DL (3.2-5.2); BLOOD UREA NITROGEN 18 MG/DL (7-18); CALCIUM LEVEL 9.8 MG/DL (8.8-10.2); CARBON DIOXIDE LEVEL 32 MEQ/L (21-32); CHLORIDE LEVEL 108 MEQ/L (98-107); CREATININE FOR GFR 0.94 MG/DL (0.70-1.30); GLOMERULAR FILTRATION RATE > 60.0 (>49); GLUCOSE, FASTING 100 MG/DL (70-100); NT-PRO BNP 1304 PG/ML (<125); PHOSPHORUS LEVEL 4.1 MG/DL (2.5-4.9); POTASSIUM SERUM 4.6 MEQ/L (3.5-5.1); SODIUM LEVEL 143 MEQ/L (136-145)
== END ==
LOC: M PLALAB 08:02
PROVIDERS: ATTEND Family Medicine
DX: G40.909 Epilepsy, unspecified, not intractable, without status epilepticus (principal)

== ENCOUNTER 2021-02-18 15:47 | Emergency (ER) | payer MEDICARE ==
[~2021-02-18] VITALS: Ht 175.3 cm; Wt 75.9 kg
[2021-02-18] MEDS ORDERED: NITR0.4S14 SL (15:56)
[2021-02-18] MEDS ORDERED: LISI20TA33 (15:56)
--- NOTE | 2021-02-18 16:15 | REP ---
INDICATION: fall, hit head, on eliquis COMPARISON: None. TECHNIQUE: Axial noncontrast images from the skull base to the thoracic inlet with coronal reformations. This CT examination was performed using the following dose reduction techniques: Automated exposure control, adjustment of mA and/or kv according to the patient's size, and use of iterative reconstruction technique. FINDINGS: Atrophy with periventricular leukomalacia and microvascular ischemic changes are appreciated. And cephalo malacia in the left parietal lobe consistent with prior infarction. The ventricles and sulci are symmetric. Huerta-white differentiation is maintained. There is no evidence for acute intracranial hemorrhage, mass/mass effect, pathology or infarction. No extra-axial fluid collection. Calvarium is intact. Fluid and mucosal changes to the ethmoid and maxillary sinuses suggests sinus disease. IMPRESSION: Atrophy and microvascular ischemic changes. Old left parietal infarction. No acute intracranial hemorrhage, infarction, or mass/mass effect. <Electronically signed by Donte Flores > 02/18/21 [id number]
--- NOTE | 2021-02-18 16:18 | REP ---
INDICATION: fall, hit head, on eliquis COMPARISON: None. TECHNIQUE: Axial noncontrast images from the skull base to the thoracic inlet with coronal and sagittal re-formations This CT examination was performed using the following dose reduction techniques: Automated exposure control, adjustment of mA and/or kv according to the patient's size, and use of iterative reconstruction technique. FINDINGS: Moderate to advanced multilevel degenerative changes are appreciated and progressive as compared to prior examination. No acute fracture/compression injury or acute subluxation. IMPRESSION: No evidence for acute pathology or trauma/injury. <Electronically signed by Donte Flores > 02/18/21 [id number]
[2021-02-18 17:40] VITALS: BP 150/89
== END 2021-02-18 17:43 | disposition home or self-care (01) ==
LOC: M ED 15:47
DX: S00.03XA Contusion of scalp, initial encounter (principal); W18.39XA Other fall on same level, initial encounter; Y92.018 Other place in single-family (private) house as the place of occurrence of the external cause; I10 Essential (primary) hypertension; I48.91 Unspecified atrial fibrillation; Z79.01 Long term (current) use of anticoagulants; Z79.899 Other long term (current) drug therapy; Z79.82 Long term (current) use of aspirin

== ENCOUNTER → 2021-05-11 | Outpatient (CLI) | payer MEDICARE ==
[~2021-05-11] MED LIST changes: +LISI20TA33; +NITR0.4S14 SL
[2021-05-11 11:01] LABS: BASO # 0.1 10^3/uL (0.0-0.2); BASO % 0.9 % (0.0-1.0); EOS # 0.1 10^3/uL (0.0-0.5); EOS % 2.7 % (0.0-3.0); HEMATOCRIT 41.3 % (42.0-52.0); HEMOGLOBIN 14.1 g/dl (13.5-17.5); LYMPH # 1.5 10^3/uL (1.5-5.0); LYMPH % 28.1 % (24.0-44.0); MEAN CORPUSCULAR HEMOGLOBIN 30.1 pg (27.0-33.0); MEAN CORPUSCULAR HGB CONC 34.1 g/dl (32.0-36.5); MEAN CORPUSCULAR VOLUME 88.1 fl (80.0-96.0); MONO # 0.4 10^3/uL (0.0-0.8); MONO % 7.6 % (2.0-8.0); NEUTROPHILS # 3.2 10^3/uL (1.5-8.5); NEUTROPHILS % 60.3 % (36.0-66.0); PLATELET COUNT, AUTOMATED 171 10^3/uL (150-450); RED BLOOD COUNT 4.69 10^6/uL (4.30-6.10); WHITE BLOOD COUNT 5.3 10^3/uL (4.0-10.0)
[2021-05-11 11:35] LABS: CHOLESTEROL LEVEL 125 MG/DL (<200); CHOLESTEROL RISK RATIO 2.232 (<5); HDL CHOLESTEROL 56 MG/DL (>40); LDL CHOLESTEROL 56 MG/DL (<100); NON-HDL-C 69 MG/DL; TRIGLYCERIDES LEVEL 65 MG/DL (<150)
[2021-05-11 11:38] LABS: PTH INTACT 31.2 PG/ML (18.5-88.0); TOTAL 25(OH) VITAMIN D 31.6 NG/ML (30.0-100.0); VITAMIN B12 LEVEL 1984 PG/ML (247-911)
[2021-05-11 11:54] LABS: HEMOGLOBIN A1c 6.1 %
[2021-05-13 12:07] LABS: INSULIN LEVEL 20.6 uIU/mL (2.6-24.9); LEVETIRACETAM (KEPPRA) 48.1 ug/mL (10.0-40.0)
== END ==
LOC: M PLALAB 07:56
PROVIDERS: ATTEND Family Medicine
DX: E78.2 Mixed hyperlipidemia (principal); G40.909 Epilepsy, unspecified, not intractable, without status epilepticus; R73.01 Impaired fasting glucose; E55.9 Vitamin D deficiency, unspecified; K70.9 Alcoholic liver disease, unspecified; Z79.899 Other long term (current) drug therapy

== ENCOUNTER → 2021-05-14 | Outpatient (CLI) | payer MEDICARE | LOC: M LABSMTC 09:45 | PROVIDERS: ATTEND Anesthesiology | DX: Z01.812 Encounter for preprocedural laboratory examination (principal); Z20.822 Contact with and (suspected) exposure to COVID-19 ==

== ENCOUNTER 2021-05-30 09:54 | Observation (INO) | payer MEDICARE ==
[~2021-05-30 09:54] MED LIST changes: -LISI20TA33; +LISI20TA33 PO
--- NOTE | 2021-05-30 10:25 | REP ---
INDICATION: Syncope/near-syncope. COMPARISON: 05/28/2018. TECHNIQUE: Single portable AP view of the chest was performed. FINDINGS: There is no acute infiltrate. There is right pleural thickening which is stable. The heart is upper limits of normal in size. There is calcific plaque in the thoracic aorta. The mediastinal silhouette is unchanged. Multiple sternal wires mediastinal clips are present as well as a left pacemaker. IMPRESSION: No acute pulmonary disease. <Electronically signed by Adalid Huerta > 05/30/21 1021
--- NOTE | 2021-05-30 10:32 | REPVR ---
PROCEDURE INFORMATION: Exam: CT Head Without Contrast Exam date and time: 05/30/2021 10:04 AM Age: 66 years old Clinical indication: Injury or trauma; Fall; Blunt trauma (contusions or hematomas) TECHNIQUE: Imaging protocol: Computed tomography of the head without contrast. Radiation optimization: All CT scans at this facility use at least one of these dose optimization techniques: automated exposure control; mA and/or kV adjustment per patient size (includes targeted exams where dose is matched to clinical indication); or iterative reconstruction. COMPARISON: CT Head without contrast 02/18/2021 3:59 PM FINDINGS: Brain: There is no acute intracranial hemorrhage or mass effect. Mild diffuse volume loss is within the range of normal for patient age. There are small vessel ischemic changes within the periventricular and subcortical white matter, but the normal neal/white matter delineation is maintained. There is left temporoparietal encephalomalacia. Cerebral ventricles: No ventriculomegaly. Paranasal sinuses: Visualized sinuses are unremarkable. No fluid levels. Mastoid air cells: Visualized mastoid air cells are well aerated. Bones/joints: Unremarkable. No acute fracture. Soft tissues: Unremarkable. IMPRESSION: No acute hemorrhage or calvarial fracture. Electronically signed by: Leanne Sutton On 05/30/2021 10:32:16 AM
--- NOTE | 2021-05-30 10:38 | REPVR ---
PROCEDURE INFORMATION: Exam: CT Cervical Spine Without Contrast Exam date and time: 05/30/2021 10:04 AM Age: 66 years old Clinical indication: Injury or trauma; Fall; Blunt trauma TECHNIQUE: Imaging protocol: Computed tomography images of the cervical spine without contrast. Radiation optimization: All CT scans at this facility use at least one of these dose optimization techniques: automated exposure control; mA and/or kV adjustment per patient size (includes targeted exams where dose is matched to clinical indication); or iterative reconstruction. COMPARISON: CT Spine,cervical w/o contrast 02/18/2021 3:59 PM FINDINGS: Bones/joints: No acute fracture. Normal alignment. Discs/Spinal canal/Neural foramina: There is moderate intervertebral disc space loss at C3/4 and severe intervertebral disc space loss at C4/5 and C6/7. There is multilevel facet hypertrophy. Lungs: Lung apices are normal. Soft tissues: Unremarkable. IMPRESSION: No acute fracture. Electronically signed by: Leanne Sutton On 05/30/2021 10:38:02 AM
[2021-05-30] MEDS ORDERED: BOOSTRIX/ADACEL VACCINE (DIPHTH/PERTUSS/ACELL/TETANUS) 0.5ML SYR IM ONE ×2 (10:50→11:15)
[2021-05-30 10:52] LABS: BASO # 0.1 10^3/uL (0.0-0.2); EOS # 0.1 10^3/uL (0.0-0.5); EOS % 2.1 % (0.0-3.0); HEMATOCRIT 42.4 % (42.0-52.0); HEMOGLOBIN 14.3 g/dl (13.5-17.5); LYMPH # 1.4 10^3/uL (1.5-5.0); LYMPH % 27.3 % (24.0-44.0); MEAN CORPUSCULAR HEMOGLOBIN 29.8 pg (27.0-33.0); MEAN CORPUSCULAR HGB CONC 33.7 g/dl (32.0-36.5); MEAN CORPUSCULAR VOLUME 88.3 fl (80.0-96.0); MONO # 0.4 10^3/uL (0.0-0.8); MONO % 7.9 % (2.0-8.0); NEUTROPHILS # 3.2 10^3/uL (1.5-8.5); NEUTROPHILS % 61.1 % (36.0-66.0); PLATELET COUNT, AUTOMATED 150 10^3/uL (150-450); WHITE BLOOD COUNT 5.2 10^3/uL (4.0-10.0)
[2021-05-30 11:22] LABS: BLOOD UREA NITROGEN 12 MG/DL (7-18); CALCIUM LEVEL 9.3 MG/DL (8.8-10.2); CARBON DIOXIDE LEVEL 26 MEQ/L (21-32); CHLORIDE LEVEL 95 MEQ/L (98-107); CK-MB VALUE MASS 3.6 NG/ML (<3.6); CPK CREATINE PHOSPHOKINASE 119 U/L (39-308); CREATININE FOR GFR 0.87 MG/DL (0.70-1.30); ETHYL ALCOHOL (ETHANOL) < 0.003 % (0.000-0.010); FREE T4 0.83 NG/DL (0.76-1.46); GLOMERULAR FILTRATION RATE > 60.0 (>49); GLUCOSE, FASTING 122 MG/DL (70-100); MAGNESIUM LEVEL 2.1 MG/DL (1.8-2.4); MB/CK RELATIVE INDEX 3.03 (< OR =4); POTASSIUM SERUM 4.4 MEQ/L (3.5-5.1); SODIUM LEVEL 129 MEQ/L (136-145); TROPONIN I < 0.02 NG/ML (< 0.10)
[2021-05-30] MEDS ORDERED: LIDOCAINE W/EPINEPHRINE 1% 20ML VIAL As Ordered ONE (12:15)
[2021-05-30] MEDS ORDERED: TRIL1TAB PO (14:33)
[2021-05-30] MEDS ORDERED: TRAZ-252 PO (14:33)
[2021-05-30] MEDS ORDERED: LEVE10003 PO (14:33)
[2021-05-30] MEDS ORDERED: OXCA300T14 PO (14:33)
[2021-05-30] MEDS ORDERED: D31000TA2 PO (14:33)
[2021-05-30] MEDS ORDERED: HOME MED LIST COMPLETE! XX SCH (14:35)
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
[2021-05-30] MEDS ORDERED: NITROGLYCERIN 0.4 MG SUBL TABLET SL PRN (15:30)
[2021-05-30 16:08] LABS: FREE T4 0.87 NG/DL (0.76-1.46); THYROID STIMULATING HORMONE 0.887 uIU/ML (0.358-3.740)
[2021-05-30] MEDS: SPIRONOLACTONE 25 MG TAB PO SCH (16:40)
[2021-05-30 18:47] LABS: RSV AMPLIFICATION NEGATIVE (NEGATIVE)
--- NOTE | 2021-05-30 19:45 | ECGEPIP ---
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
[2021-05-30] MEDS: OXcarbazepine 300 MG TAB PO SCH (21:00)
[2021-05-30] MEDS: APIXABAN 5 MG TAB (ELIQUIS) PO SCH (21:00)
[2021-05-30] MEDS: levETIRAcetam 250MG TABLET (KEPPRA) PO SCH (22:05)
[2021-05-30] MEDS: traZODone 50 MG TAB PO SCH (22:05)
[2021-05-30] MEDS: CARVedilol 3.125 MG TAB PO SCH (22:06)
[2021-05-31 07:00] LABS: ALT/SGPT 11 U/L (12-78); BILIRUBIN,TOTAL 0.8 MG/DL (0.2-1.0); BLOOD UREA NITROGEN 11 MG/DL (7-18); CALCIUM LEVEL 9.3 MG/DL (8.8-10.2); CARBON DIOXIDE LEVEL 26 MEQ/L (21-32); CHLORIDE LEVEL 98 MEQ/L (98-107); CREATININE FOR GFR 0.69 MG/DL (0.70-1.30); GLOMERULAR FILTRATION RATE > 60.0 (>49); GLUCOSE, FASTING 84 MG/DL (70-100); POTASSIUM SERUM 4.4 MEQ/L (3.5-5.1); SODIUM LEVEL 131 MEQ/L (136-145); TOTAL PROTEIN 6.8 GM/DL (6.4-8.2)
[2021-05-31] MEDS: ACETAMINOPHEN TAB 650MG DOSE (2X325MG) PO PRN ×2 (07:39→17:35)
[2021-05-31 08:00] VITALS: BP 160/89
[2021-05-31] MEDS: VITAMIN D 1,000 INTERNATIONAL UNITS TABLET PO SCH (10:02)
[2021-05-31] MEDS: CARVedilol 3.125 MG TAB PO SCH ×2 (10:02→20:10)
[2021-05-31] MEDS: ASPIRIN 81MG ENTERIC TABLET PO SCH (10:02)
[2021-05-31] MEDS: APIXABAN 5 MG TAB (ELIQUIS) PO SCH ×2 (10:02→20:11)
[2021-05-31] MEDS: CYANOCOBALAMIN 500 MCG TAB PO SCH (10:02)
[2021-05-31] MEDS: levETIRAcetam 250MG TABLET (KEPPRA) PO SCH ×2 (10:03→20:10)
[2021-05-31] MEDS: OXcarbazepine 300 MG TAB PO SCH ×2 (10:03→20:11)
[2021-05-31] MEDS: SPIRONOLACTONE 25 MG TAB PO SCH (10:03)
[2021-05-31] MEDS: PRAVASTATIN 20 MG TAB PO SCH (10:03)
[2021-05-31] MEDS: FINASTERIDE 5 MG TAB PO SCH (10:03)
[2021-05-31 14:10] VITALS: BP 139/89
[2021-05-31 14:25] VITALS: BP_SYST 145; BP_SYST 153; BP_SYST 158; BP_DIAS 89; BP_DIAS 90
--- NOTE | 2021-05-31 18:45 | IPNPDOC ---
Subjective Date Seen The patient was seen on 05/31/21. Subjective Chief Complaint/HPI Patient was seen and examined at bedside this morning. He had no new complaints. He denies chest pain, shortness of breath, abdominal pain, pal pitations, nausea, vomiting, problem with urination and bowel movements. Objective Physical Examination Other physical findings General: Lying in bed, no acute distress Head/Neck/Throat: Trachea midline, mucous membranes moist Eyes: Sclera anicteric, PERRLA Thorax: Normal respiratory effort on room air, lungs clear to auscultation bilaterally, no wheezes/rales/rhonchi Cardiovascular: Normal rate, regular rhythm, normal S1, S2; no S3, S4, rubs/gallops/murmurs Abdomen: Bowel sounds present, soft/nontender/nondistended Genitourinary: No CVA tenderness, no Kent in place Musculoskeletal: Moving all extremities, no edema Skin: Warm, dry Neurologic: AAOx3, speech fluent and goal-directed, no focal deficits, grossly intact Assessment /Plan Assessment 66-year-old male presented to [facility] following an episode of syncope. He reported attempting to have a bowel movement and subsequently losing consciousness. He fell onto the floor and possibly hit the tub which alerted his mom to call EMS. #Syncope -Patient reports while he was having a bowel movement he had an episode episode of syncope; likely vasovagal -No events on telemetry thus far. Orthostatic signs are negative. MRI ordered on admission is negative. -We will touch base with cardiology for interrogation of pacemaker -Echocardiogram pending #Laceration of scalp -Stitches to be removed in 10 days #Chronic hyponatremia -No neurological symptoms at this time. Continue to monitor sodium levels. #Ischemic cardiomyopathy -No signs of acute exacerbation. Heart failure with reduced ejection fraction, last echocardiogram done was in 2018 and it showed an ejection fraction of 30%. -Continue with lisinopril, carvedilol, and spironolactone. #Atrial fibrillation -No events on telemetry thus far. -Continue with carvedilol for rate control and Eliquis for systemic anticoagulation #Coronary artery disease -Continue aspirin and statin therapy #Hyperlipidemia -Continue with acetamide and statin therapy #BPH -Continue with finasteride #Hypertension -Continue with carvedilol and lisinopril #DVT prophylaxis -Offered with Eliquis Plan/VTE VTE Prophylaxis Ordered?: Yes VS, I&O, 24H, Fishbone Vital Signs/I&O Vital Signs Date Time Temp Pulse Resp B/P (MAP) Pulse Ox O2 Delivery O2 Flow Rate FiO2 05/31/21 14:25 68 158/89 (112) 71 153/90 (111) 75 145/90 (108) 05/31/21 14:10 98.3 16 99 Room Air Laboratory Data 24H LABS Laboratory Tests 2 05/30/21 18:01: Coronavirus (COVID-19)(PCR) NEGATIVE, Influenza Type A (RT-PCR) NEGATIVE, Influenza Type B (RT-PCR) NEGATIVE, Respiratory Syncytial Virus (PCR) NEGATIVE 05/31/21 05:33: Anion Gap 7L, Glomerular Filtration Rate > 60.0, Calcium Level 9.3, Total Bilirubin 0.8, Aspartate Amino Transf (AST/SGOT) 17, Alanine Aminotransferase (ALT/SGPT) 11L, Alkaline Phosphatase 78, Total Protein 6.8, Albumin 4.0, Albumin/Globulin Ratio 1.4 CBC/BMP Laboratory Tests 05/31/21 05:33 SHELLEY SANTOS M.D. May 31, 2021 16:34
[2021-05-31] MEDS: traZODone 50 MG TAB PO SCH (20:10)
[2021-05-31 22:00] VITALS: BP 105/67
[2021-06-01 06:00] VITALS: BP 110/69
[2021-06-01 06:22] LABS: HEMATOCRIT 43.2 % (42.0-52.0); HEMOGLOBIN 14.9 g/dl (13.5-17.5); MEAN CORPUSCULAR HEMOGLOBIN 30.1 pg (27.0-33.0); MEAN CORPUSCULAR HGB CONC 34.5 g/dl (32.0-36.5); MEAN CORPUSCULAR VOLUME 87.3 fl (80.0-96.0); PLATELET COUNT, AUTOMATED 143 10^3/uL (150-450); RED BLOOD COUNT 4.95 10^6/uL (4.30-6.10)
[2021-06-01 07:01] LABS: BLOOD UREA NITROGEN 18 MG/DL (7-18); CALCIUM LEVEL 9.2 MG/DL (8.8-10.2); CARBON DIOXIDE LEVEL 24 MEQ/L (21-32); CHLORIDE LEVEL 101 MEQ/L (98-107); CREATININE FOR GFR 0.91 MG/DL (0.70-1.30); GLOMERULAR FILTRATION RATE > 60.0 (>49); GLUCOSE, FASTING 83 MG/DL (70-100); MAGNESIUM LEVEL 2.1 MG/DL (1.8-2.4); PHOSPHORUS LEVEL 4.6 MG/DL (2.5-4.9); SODIUM LEVEL 134 MEQ/L (136-145)
[2021-06-01 09:00] VITALS: BP 101/64
[2021-06-01] MEDS ORDERED: FLUBLOK(EGG FREE)(QUAD)INFLUENZA VACC 0.5ML SYRINGE 18YRS & OLDER IM ONE (09:00)
[2021-06-01] MEDS: CARVedilol 3.125 MG TAB PO SCH (09:00)
[2021-06-01] MEDS: OXcarbazepine 300 MG TAB PO SCH (09:43)
[2021-06-01] MEDS: levETIRAcetam 250MG TABLET (KEPPRA) PO SCH (09:43)
[2021-06-01] MEDS: FINASTERIDE 5 MG TAB PO SCH (09:45)
[2021-06-01] MEDS: SPIRONOLACTONE 25 MG TAB PO SCH (09:45)
[2021-06-01] MEDS: ASPIRIN 81MG ENTERIC TABLET PO SCH (09:45)
[2021-06-01] MEDS: PRAVASTATIN 20 MG TAB PO SCH (09:46)
[2021-06-01] MEDS: CYANOCOBALAMIN 500 MCG TAB PO SCH (09:46)
[2021-06-01] MEDS: VITAMIN D 1,000 INTERNATIONAL UNITS TABLET PO SCH (09:47)
[2021-06-01] MEDS: APIXABAN 5 MG TAB (ELIQUIS) PO SCH (09:47)
--- NOTE | 2021-06-01 10:08 | ECGEPIP ---
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
[2021-06-01 14:00] VITALS: BP 129/71
--- NOTE | 2021-06-01 14:41 | DS.PDOC ---
Discharge Summary General Date of Admission May 30, 2021 at 09:55 Date of Discharge 06/01/21 Discharge Summary PROCEDURES PERFORMED DURING STAY: [None]. DISCHARGE DIAGNOSES: 1. Vasovagal syncope 2. Head laceration COMPLICATIONS/CHIEF COMPLAINT: Laceration Of Head, Syncope. HOSPITAL COURSE: Mr. Diaz, presented to the emergency department at [facility] on 05/30/2021 following an episode of syncope. Patient reports he was moving his bowel movements when he lost consciousness and subsequently hit his head requiring stitches in the emergency room department. He was monitored on tele metry during hospitalization and no acute arrhythmias were appreciated. His device was interrogated by [employer] field marketing representative, and there was no acute events that were recorded during this episode. He does have chronic atrial fibrillation with heart rates that are controlled. 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 Left ventricular ejection fraction was 35 to 40%. There was moderately to severe mitral regurgitation. There was mild aortic valve sclerosis with no aortic stenosis or aortic regurgitation. There was moderate elevation of right ventricular systolic pressure (54 mmHg). There was severe tricuspid regurgitation, as well as moderate left atrial enlargement. There was severe right atrial enlargement. 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 Due to his fall a cervical spine CT scan was done that showed no acute fracture. There was moderate intervertebral disc space loss at C3/C4 and severe intervertebral disc space loss at C4/C5 and C6/C7. There was also multilevel facet hypertrophy. A head CT scan of the brain was done there is no acute hemorrhage her close area of fracture appreciated. A chest x-ray showed no acute findings. Patient was encouraged to obtain detailed records of his imaging/lab results. Of note, patient sodium level is 129 (with no neurological findings clinically) at the time of admission and at time of discharge was 134, this likely due to his diuretics. He is encouraged to have repeat chemistry done with his primary care physician. In addition, patient had a head laceration and was asked to remove his stitches in 10 days (06/09). At the time of discharge, there was no neurological defici ts. Patient reported well and was back to his baseline status. DISCHARGE MEDICATIONS: Please see below. ALLERGIES: Please see below. PHYSICAL EXAMINATION ON DISCHARGE: VITAL SIGNS: Please see below. General: Lying in bed, no acute distress Head/Neck/Throat: Trachea midline, mucous membranes moist Eyes: Sclera anicteric, PERRLA Thorax: Normal respiratory effort on room air, lungs clear to auscultation bilaterally, no wheezes/rales/rhonchi Cardiovascular: Normal rate, regular rhythm, normal S1, S2; no S3, S4, rubs/gallops/murmurs Abdomen: Bowel sounds present, soft/nontender/nondistended Genitourinary: No CVA tenderness, no Kent in place Musculoskeletal: Moving all extremities, no edema Skin: Warm, dry Neurologic: AAOx3, speech fluent and goal-directed, no focal deficits, grossly intact LABORATORY DATA: Please see below. IMAGING: Please see above PROGNOSIS: Good ACTIVITY: As tolerated DISCHARGE INSTRUCTIONS: 1. Repeat CMP and 2 to 5 days with primary care physician 2. Follow-up with primary care physician in 5 days 3. Follow-up with clay shop supervisor in 5 days DISCHARGE CONDITION: [Stable]. TIME SPENT ON DISCHARGE: 25 minutes Vital Signs/I&Os Vital Signs Date Time Temp Pulse Resp B/P (MAP) Pulse Ox O2 Delivery O2 Flow Rate FiO2 06/01/21 09:00 101/64 06/01/21 06:00 97.8 80 17 96 Room Air I&O- Last 24 Hours up to 6 AM 06/01/21 06:00 Intake Total 660 ml Output Total 250 ml Balance 410 ml Laboratory Data Labs 24H Laboratory Tests 2 06/01/21 05:39: Nucleated Red Blood Cells % (auto) 0.0, Anion Gap 9, Glomerular Filtration Rate > 60.0, Calcium Level 9.2, Phosphorus Level 4.6, Magnesium Level 2.1 CBC/BMP Laboratory Tests 06/01/21 05:39 Discharge Medications Scheduled Apixaban (Eliquis) 5 Mg Tab, 5 MG PO BID, (Reported) Aspirin (Aspirin EC) 81 Mg Tab, 81 MG PO DAILY, (Reported) Carvedilol (Carvedilol) 3.125 Mg Tab, 3.125 MG PO BID, (Reported) Cholecalciferol (Vitamin D3) (Vitamin D3) 1,000 Unit Tablet, 1,000 UNITS PO DAILY, (Reported) Cyanocobalamin (Vitamin B-12) (Vitamin B-12) 1,000 Mcg Tab, 1,000 MCG PO DAILY, (Reported) Eplerenone (Eplerenone) 25 Mg Tab, 25 MG PO DAILY, (Reported) Finasteride (Finasteride) 5 Mg Tab, 5 MG PO DAILY, (Reported) Lisinopril (Lisinopril) 20 Mg Tablet, 20 MG PO DAILY, (Reported) Oxcarbazepine (Trileptal) 300 Mg Tablet, 600 MG PO DAILY, (Reported) Oxcarbazepine (Oxcarbazepine) 300 Mg Tablet, 300 MG PO QHS, (Reported) Pravastatin Sodium (Pravastatin Sodium) 40 Mg Tab, 40 MG PO DAILY, (Reported) Trazodone HCl (Trazodone HCl) 50 Mg Tablet, 50 MG PO QHS, (Reported) levETIRAcetam (levETIRAcetam) 1,000 Mg Tablet, 1,000 MG PO BID, (Reported) Scheduled PRN Nitroglycerin (Nitroglycerin) 0.4 Mg Tab.subl, 0.4 MG SL NITRO PRN for CHEST PAIN, (Reported) 1st sign of attack; may repeat every 5 mins; if pain persists after 3 in 15 min, medical attention is recommended Allergies Coded Allergies: No Known Allergies (Verified , 05/28/18) SHELLEY SANTOS M.D. Jun 01, 2021 13:38
--- NOTE | 2021-06-02 12:27 | ECHO ---
ECHOCARDIOGRAM DATE OF PROCEDURE: 05/31/2021 Age: Gender: Height: 175 cm Weight: 70 kg REFERRING PHYSICIAN: Dr. Lesli Chandra. INDICATION: Syncope. MEASUREMENTS: 2D Measurements: Left atrium 4.9 cm Interventricular septum 1.44 cm Posterior wall 1.01 cm Left ventricle diastole 4.5 cm Aortic root 3.4 cm Aortic annulus 2.6 cm Inferior vena cava 2.3 Doppler Measurements: No aortic stenosis No aortic regurgitation Aortic valve velocity 99.1 cm/s Moderately-severe mitral regurgitation No mitral stenosis Severe tricuspid regurgitation Estimated right ventricle systolic pressure 54 mmHg Estimated right atrial pressure of 15 mmHg DESCRIPTION: Rhythm was atrial fibrillation. This was a moderately technically difficult echocardiogram. This was a 2D, M-mode, color flow Doppler, and pulsed wave Doppler examination. CONCLUSIONS: 1. Regional wall motion abnormalities at the left ventricle with akinesis of the left ventricle apex and the mid anterior and mid anteroseptal segments. Probably normal wall motion and wall thickening elsewhere. Mild hypertrophy of the basal anterior interventricular septum. Severe reduction of overall LV systolic function. LVEF 35-40% by visual estimate. 2. Moderate left atrial dilatation. 3. Moderate mitral annular calcification. Moderately-severe mitral regurgitation. No mitral stenosis. 4. Suggestive of moderate elevation of estimated right ventricle systolic pressure (54 mmHg). Normal right ventricle size and systolic function. Severe right atrial dilatation. Structurally normal appearing tricuspid leaflets. Severe tricuspid regurgitation. 5. No pericardial effusion. 6. Mild aortic valve sclerosis of a 3-cusp aortic valve. No aortic regurgitation. 7. Presence of an ICD lead coursing in the right ventricle. A text message of the [employer] was sent with preliminary results to Dr. Paco Dale on 06/01/2021 at 1:59 p.m. cc: Dr. Lesli Dale
== END 2021-06-01 15:44 | disposition home or self-care (01) ==
LOC: M ED 09:54 → M ED INP 09:55 → ENRESERV 05-31 13:20 → M MSPAV 05-31 14:20
PROVIDERS: ADMIT Internal Medicine; ATTEND Internal Medicine
DX: R55 Syncope and collapse (principal); S01.91XA Laceration without foreign body of unspecified part of head, initial encounter; W18.12XA Fall from or off toilet with subsequent striking against object, initial encounter; Y92.091 Bathroom in other non-institutional residence as the place of occurrence of the external cause; I48.20 Chronic atrial fibrillation, unspecified; E87.1 Hypo-osmolality and hyponatremia; I25.2 Old myocardial infarction; I25.5 Ischemic cardiomyopathy; I25.10 Atherosclerotic heart disease of native coronary artery without angina pectoris; E78.5 Hyperlipidemia, unspecified; N40.0 Benign prostatic hyperplasia without lower urinary tract symptoms; G40.909 Epilepsy, unspecified, not intractable, without status epilepticus; I47.2 Ventricular tachycardia; K70.30 Alcoholic cirrhosis of liver without ascites; I50.20 Unspecified systolic (congestive) heart failure; K50.90 Crohn's disease, unspecified, without complications; Z86.73 Personal history of transient ischemic attack (TIA), and cerebral infarction without residual deficits; I34.0 Nonrheumatic mitral (valve) insufficiency; I11.9 Hypertensive heart disease without heart failure; E53.8 Deficiency of other specified B group vitamins; M51.9 Unspecified thoracic, thoracolumbar and lumbosacral intervertebral disc disorder; Z95.1 Presence of aortocoronary bypass graft; Z95.810 Presence of automatic (implantable) cardiac defibrillator; Z87.891 Personal history of nicotine dependence; G47.00 Insomnia, unspecified; Z79.899 Other long term (current) drug therapy; Z79.01 Long term (current) use of anticoagulants; Z79.82 Long term (current) use of aspirin
CPT/HCPCS: 12002; 36415; 70450; 71045; 72125; 80048; 80053; 80180; 82077; 82550; 82553; 83605; 83735; 83930; 84100; 84439; 84443; 84484; 85025; 85027; 87631; 90471; 90682; 90715; 93005; 93041; 93306; 94760; 99285; G0008; G0378

== ENCOUNTER → 2021-08-22 | Outpatient (CLI) | payer MEDICARE ==
[~2021-08-22] MED LIST changes: +D31000TA2 PO; +LEVE10003 PO; +TRAZ-252 PO
--- NOTE | 2021-08-22 11:13 | REP ---
INDICATION: IMPINGEMENT SYNDROME OF RIGHT SHOULDER COMPARISON: None. TECHNIQUE: Three views right shoulder. FINDINGS: There is no evidence of acute fracture, dislocation, or intrinsic bone disease.A small calcific density along the superolateral humeral head probably represents a tendinous calcification, raising the possibility of calcific tendinitis. IMPRESSION: No fracture or dislocation. Possible calcific tendinitis. <Electronically signed by Adalid Huerta > 08/22/21 [id number]
== END ==
LOC: M PLAIMG 10:23
PROVIDERS: ATTEND Family Medicine
DX: M75.41 Impingement syndrome of right shoulder (principal)
CPT/HCPCS: 73030; G0463

== ENCOUNTER → 2021-12-05 | Outpatient (CLI) | payer MEDICAID, MEDICARE ==
[~2021-12-05] MED LIST changes: -D31000TA2 PO; -LISI-898 PO; +LISI5TAB11 PO; +VITA100093 PO
== END ==
LOC: M RAD 07:08
PROVIDERS: ATTEND Family Medicine
DX: K70.9 Alcoholic liver disease, unspecified (principal)

== ENCOUNTER → 2022-02-15 | Outpatient (CLI) | payer MEDICARE, MEDICAID ==
[2022-02-15 10:39] LABS: BASO # 0.1 10^3/uL (0.0-0.2); BASO % 1.1 % (0.0-1.0); EOS # 0.1 10^3/uL (0.0-0.5); EOS % 1.1 % (0.0-3.0); HEMATOCRIT 42.9 % (42.0-52.0); HEMOGLOBIN 14.2 g/dl (13.5-17.5); LYMPH # 1.6 10^3/uL (1.5-5.0); LYMPH % 30.8 % (24.0-44.0); MEAN CORPUSCULAR HEMOGLOBIN 30.1 pg (27.0-33.0); MEAN CORPUSCULAR HGB CONC 33.1 g/dl (32.0-36.5); MEAN CORPUSCULAR VOLUME 91.1 fl (80.0-96.0); MONO # 0.4 10^3/uL (0.0-0.8); MONO % 7.4 % (2.0-8.0); NEUTROPHILS # 3.1 10^3/uL (1.5-8.5); NEUTROPHILS % 59.4 % (36.0-66.0); PLATELET COUNT, AUTOMATED 143 10^3/uL (150-450); RED BLOOD COUNT 4.71 10^6/uL (4.30-6.10); WHITE BLOOD COUNT 5.3 10^3/uL (4.0-10.0)
[2022-02-15 10:54] LABS: HEMOGLOBIN A1c 5.8 %
[2022-02-15 11:00] LABS: INR 1.15; PARTIAL THROMBOPLASTIN TIME 31.9 SECONDS (25.9-37.0); PROTHROMBIN TIME 15.1 SECONDS (12.7-14.5)
[2022-02-15 11:17] LABS: ALBUMIN 4.2 GM/DL (3.2-5.2); ALT/SGPT 13 U/L (12-78); BILIRUBIN,TOTAL 0.5 MG/DL (0.2-1.0); BLOOD UREA NITROGEN 17 MG/DL (7-18); CALCIUM LEVEL 9.7 MG/DL (8.8-10.2); CARBON DIOXIDE LEVEL 29 MEQ/L (21-32); CHLORIDE LEVEL 102 MEQ/L (98-107); CREATININE FOR GFR 0.81 MG/DL (0.70-1.30); FERRITIN 76 NG/ML (26-388); GLOMERULAR FILTRATION RATE > 60.0 (>49); GLUCOSE, FASTING 93 MG/DL (70-100); MAGNESIUM LEVEL 2.1 MG/DL (1.8-2.4); POTASSIUM SERUM 4.4 MEQ/L (3.5-5.1); SODIUM LEVEL 137 MEQ/L (136-145); TOTAL PROTEIN 6.9 GM/DL (6.4-8.2)
[2022-02-15 11:19] LABS: VITAMIN B12 LEVEL 1609 PG/ML (247-911)
== END ==
LOC: M PLALAB 08:00
PROVIDERS: ATTEND Family Medicine
DX: I50.22 Chronic systolic (congestive) heart failure (principal); G40.909 Epilepsy, unspecified, not intractable, without status epilepticus; E53.8 Deficiency of other specified B group vitamins; R73.01 Impaired fasting glucose; K70.9 Alcoholic liver disease, unspecified

== ENCOUNTER → 2022-12-13 | Outpatient (CLI) | payer MEDICARE ==
[2022-12-13 11:07] LABS: BASO % 0.8 % (0.0-1.0); EOS % 0.2 % (0.0-3.0); HEMATOCRIT 45.4 % (42.0-52.0); HEMOGLOBIN 14.7 g/dl (13.5-17.5); LYMPH # 1.5 10^3/uL (1.5-5.0); LYMPH % 28.8 % (24.0-44.0); MEAN CORPUSCULAR HEMOGLOBIN 30.1 pg (27.0-33.0); MEAN CORPUSCULAR HGB CONC 32.4 g/dl (32.0-36.5); MEAN CORPUSCULAR VOLUME 92.8 fl (80.0-96.0); MONO # 0.4 10^3/uL (0.0-0.8); MONO % 7.3 % (2.0-8.0); NEUTROPHILS # 3.3 10^3/uL (1.5-8.5); NEUTROPHILS % 62.5 % (36.0-66.0); PLATELET COUNT, AUTOMATED 138 10^3/uL (150-450); RED BLOOD COUNT 4.89 10^6/uL (4.30-6.10); WHITE BLOOD COUNT 5.3 10^3/uL (4.0-10.0)
[2022-12-13 11:13] LABS: ALBUMIN 4.3 G/DL (3.2-5.2); ALKALINE PHOSPHATASE 71 U/L (46-116); ALT/SGPT < 9 U/L (7.0-40); AST/SGOT 19 U/L (<34); BILIRUBIN,TOTAL 0.6 MG/DL (0.3-1.2); BLOOD UREA NITROGEN 19 MG/DL (9-23); CALCIUM LEVEL 9.4 MG/DL (8.3-10.6); CARBON DIOXIDE LEVEL 31 MMOL/L (20-31); CHLORIDE LEVEL 105 MMOL/L (98-107); CHOLESTEROL LEVEL 158 MG/DL (<200); CHOLESTEROL RISK RATIO 2.44 (<5); CREATININE FOR GFR 0.78 MG/DL (0.70-1.30); GLOMERULAR FILTRATION RATE > 60.0 (>49); GLUCOSE, FASTING 105 MG/DL (74-106); HDL CHOLESTEROL 64.5 MG/DL (>40); LDL CHOLESTEROL 80.3 MG/DL (<100); MAGNESIUM LEVEL 1.9 MG/DL (1.8-2.4); NON-HDL-C 93.5 MG/DL; POTASSIUM SERUM 4.5 MMOL/L (3.5-5.1); PTH INTACT 41.6 PG/ML (18.5-88.0); SODIUM LEVEL 140 MMOL/L (136-145); TOTAL 25(OH) VITAMIN D 39.2 NG/ML (20.0-100.0); TOTAL PROTEIN 6.9 G/DL (5.7-8.2); TRIGLYCERIDES LEVEL 66 MG/DL (<150)
== END ==
LOC: M PLALAB 08:17
PROVIDERS: ATTEND Family Medicine
DX: G40.909 Epilepsy, unspecified, not intractable, without status epilepticus (principal); I50.22 Chronic systolic (congestive) heart failure; E55.9 Vitamin D deficiency, unspecified; Z12.5 Encounter for screening for malignant neoplasm of prostate
CPT/HCPCS: 36415; 80053; 80061; 80180; 80183; 82306; 83735; 83880; 83970; 85025; G0103

== ENCOUNTER → 2023-01-01 | Outpatient (CLI) | payer MEDICARE | LOC: M WHC 08:39 | PROVIDERS: ATTEND Family Medicine | DX: K70.9 Alcoholic liver disease, unspecified (principal) ==

== ENCOUNTER → 2023-05-08 | Outpatient (CLI) | payer MEDICARE | LOC: M WUC 10:29 | PROVIDERS: ATTEND Physician Assistant | DX: S46.811S Strain of other muscles, fascia and tendons at shoulder and upper arm level, right arm, sequela (principal) ==

== ENCOUNTER → 2023-05-15 | Outpatient (CLI) | payer MEDICARE | LOC: M SOG 08:14 | PROVIDERS: ATTEND Physician Assistant | DX: M79.644 Pain in right finger(s) (principal) ==

== ENCOUNTER 2023-05-28 06:58 | Day surgery (SDC) | payer MEDICARE ==
[~2023-05-28] VITALS: Ht 175.3 cm; Wt 67.1 kg
[~2023-05-28 06:58] MED LIST changes: +B-12100T2 PO; +EZET10TA58 PO; +LIDOCAINE W/EPINEPHRINE 1% 20ML VIAL XX ONE; +SODIUM BICARBONATE 8.4% INJ 50MEQ 50ML VIAL XX ONE; -ZETI10TA16 PO
[2023-05-28] MEDS ORDERED: BACITRACIN OINTMENT 30GM TUBE As Ordered ONE (08:07)
[2023-05-28 09:21] VITALS: BP 143/76; TEMP 97; O2SAT 95
== END 2023-05-28 09:21 | disposition home or self-care (01) ==
LOC: M SDC 06:58
PROVIDERS: ATTEND Orthopaedic Surgery Hand Surgery
DX: M65.311 Trigger thumb, right thumb (principal)

== ENCOUNTER 2023-08-07 13:11 | Emergency (ER) | payer MEDICARE ==
[~2023-08-07] VITALS: Ht 175.3 cm; Wt 65.2 kg
[~2023-08-07 13:11] MED LIST changes: -LIDOCAINE W/EPINEPHRINE 1% 20ML VIAL XX ONE; -SODIUM BICARBONATE 8.4% INJ 50MEQ 50ML VIAL XX ONE
[2023-08-07 13:19] VITALS: TEMP 98.3
[2023-08-07] MEDS ORDERED: LORazepam 2 MG/ML 1ML VIAL IV PRN (13:25)
[2023-08-07 14:20] LABS: BASO % 0.7 % (0.0-1.0); EOS % 0.2 % (0.0-3.0); HEMATOCRIT 39.6 % (42.0-52.0); HEMOGLOBIN 13.5 g/dl (13.5-17.5); LYMPH # 1.7 10^3/uL (1.5-5.0); LYMPH % 29.3 % (24.0-44.0); MEAN CORPUSCULAR HEMOGLOBIN 30.3 pg (27.0-33.0); MEAN CORPUSCULAR HGB CONC 34.1 g/dl (32.0-36.5); MONO # 0.4 10^3/uL (0.0-0.8); MONO % 6.4 % (2.0-8.0); NEUTROPHILS # 3.6 10^3/uL (1.5-8.5); NEUTROPHILS % 63.1 % (36.0-66.0); PLATELET COUNT, AUTOMATED 141 10^3/uL (150-450); RED BLOOD COUNT 4.45 10^6/uL (4.30-6.10); WHITE BLOOD COUNT 5.8 10^3/uL (4.0-10.0)
[2023-08-07 14:49] LABS: ETHYL ALCOHOL (ETHANOL) < 0.003 % (0.000-0.010)
[2023-08-07 14:51] LABS: ALBUMIN 4.3 G/DL (3.2-5.2); ALKALINE PHOSPHATASE 64 U/L (46-116); ALT/SGPT < 9 U/L (7.0-40); AST/SGOT 22 U/L (<34); BILIRUBIN,DIRECT 0.2 MG/DL (<0.4); BILIRUBIN,TOTAL 0.6 MG/DL (0.3-1.2); BLOOD UREA NITROGEN 22 MG/DL (9-23); CALCIUM LEVEL 9.5 MG/DL (8.3-10.6); CARBON DIOXIDE LEVEL 26 MMOL/L (20-31); CHLORIDE LEVEL 104 MMOL/L (98-107); CREATININE FOR GFR 0.79 MG/DL (0.70-1.30); GLOMERULAR FILTRATION RATE > 60.0 (>49); GLUCOSE, FASTING 111 MG/DL (74-106); POTASSIUM SERUM 4.7 MMOL/L (3.5-5.1); SALICYLATE LEVEL < 3.0 MG/DL (<30); SODIUM LEVEL 137 MMOL/L (136-145)
[2023-08-07 14:53] LABS: THYROID STIMULATING HORMONE 1.784 uIU/ML (0.55-4.78)
[2023-08-07 14:58] LABS: AMPHETAMINES LEVEL URINE NEGATIVE (NEGATIVE); BARBITURATES URINE NEGATIVE (NEGATIVE)
[2023-08-07 14:59] LABS: BENZODIAZEPINES URINE NEGATIVE (NEGATIVE); COCAINE METABOLITE URINE NEGATIVE (NEGATIVE); METHADONE URINE NEGATIVE (NEGATIVE); OPIATES URINE NEGATIVE (NEGATIVE); PHENCYCLIDINE URINE NEGATIVE (NEGATIVE)
[2023-08-07 15:02] LABS: CANNABINOIDS URINE POSITIVE (NEGATIVE)
[2023-08-07 15:31] LABS: RSV AMPLIFICATION NEGATIVE (NEGATIVE)
[2023-08-07 15:56] VITALS: O2SAT 100
[2023-08-07 16:00] VITALS: BP 138/87
== END 2023-08-07 16:10 | disposition home or self-care (01) ==
LOC: EDBD 13:11 → M ED 13:11
DX: Z04.1 Encounter for examination and observation following transport accident (principal); R56.9 Unspecified convulsions; Z86.73 Personal history of transient ischemic attack (TIA), and cerebral infarction without residual deficits; Z79.82 Long term (current) use of aspirin; Z79.01 Long term (current) use of anticoagulants; Z79.899 Other long term (current) drug therapy

== ENCOUNTER → 2023-12-28 | Outpatient (REF) | payer MEDICARE | LOC: M SFHCPLAZ 12:49 | PROVIDERS: ATTEND Family Medicine | DX: G40.909 Epilepsy, unspecified, not intractable, without status epilepticus (principal); I50.20 Unspecified systolic (congestive) heart failure; E53.8 Deficiency of other specified B group vitamins; K70.9 Alcoholic liver disease, unspecified; R73.01 Impaired fasting glucose ==

== ENCOUNTER → 2024-02-08 | Outpatient (CLI) | payer MEDICARE ==
[~2024-02-08] MED LIST changes: -EPLE25TA PO; +EPLE25TA2 PO
[2024-02-08 15:56] LABS: HEMOGLOBIN 14.1 g/dl (13.5-17.5); MEAN CORPUSCULAR HEMOGLOBIN 30.1 pg (27.0-33.0); MEAN CORPUSCULAR HGB CONC 33.6 g/dl (32.0-36.5); MEAN CORPUSCULAR VOLUME 89.7 fl (80.0-96.0); PLATELET COUNT, AUTOMATED 157 10^3/uL (150-450); RED BLOOD COUNT 4.68 10^6/uL (4.30-6.10); WHITE BLOOD COUNT 5.2 10^3/uL (4.0-10.0)
[2024-02-08 16:19] LABS: BLOOD UREA NITROGEN 20 MG/DL (9-23); CALCIUM LEVEL 9.9 MG/DL (8.3-10.6); CARBON DIOXIDE LEVEL 30 MMOL/L (20-31); CHLORIDE LEVEL 102 MMOL/L (98-107); GLOMERULAR FILTRATION RATE > 60.0 (>49); GLUCOSE, FASTING 109 MG/DL (74-106); POTASSIUM SERUM 4.5 MMOL/L (3.5-5.1); SODIUM LEVEL 136 MMOL/L (136-145)
== END ==
LOC: M PLALAB 11:47
PROVIDERS: ATTEND Internal Medicine Cardiovascular Disease
DX: I47.20 Ventricular tachycardia, unspecified (principal)

== ENCOUNTER → 2024-05-05 | Outpatient (REF) | payer MEDICARE | LOC: M SFHCPLAZ 16:55 | PROVIDERS: ATTEND Family Medicine | DX: G40.909 Epilepsy, unspecified, not intractable, without status epilepticus (principal); I50.20 Unspecified systolic (congestive) heart failure; E53.8 Deficiency of other specified B group vitamins; R73.01 Impaired fasting glucose; K70.9 Alcoholic liver disease, unspecified; K59.09 Other constipation ==

== ENCOUNTER → 2024-05-08 | Outpatient (CLI) | payer MEDICARE ==
[2024-05-08 12:29] LABS: INR 1.23; PARTIAL THROMBOPLASTIN TIME 31.5 SECONDS (24.8-34.2); PROTHROMBIN TIME 15.2 SECONDS (12.5-14.5)
[2024-05-08 13:21] LABS: BASO % 0.7 % (0.0-1.0); HEMATOCRIT 39.9 % (42.0-52.0); LYMPH # 1.6 10^3/uL (1.5-5.0); LYMPH % 30.5 % (24.0-44.0); MEAN CORPUSCULAR HEMOGLOBIN 30.3 pg (27.0-33.0); MEAN CORPUSCULAR HGB CONC 32.6 g/dl (32.0-36.5); MONO # 0.4 10^3/uL (0.0-0.8); MONO % 7.1 % (2.0-8.0); NEUTROPHILS # 3.3 10^3/uL (1.5-8.5); NEUTROPHILS % 61.3 % (36.0-66.0); PLATELET COUNT, AUTOMATED 137 10^3/uL (150-450); RED BLOOD COUNT 4.29 10^6/uL (4.30-6.10); WHITE BLOOD COUNT 5.3 10^3/uL (4.0-10.0)
[2024-05-08 13:27] LABS: FERRITIN 54.4 NG/ML (10.5-307.3); FREE T4 1.08 NG/DL (0.89-1.76)
[2024-05-08 13:28] LABS: THYROID STIMULATING HORMONE 1.423 uIU/ML (0.55-4.78)
[2024-05-08 13:31] LABS: VITAMIN B12 LEVEL 1709 PG/ML (211-911)
[2024-05-08 13:55] LABS: HEMOGLOBIN A1c 5.8 % (4.0-6.0)
[2024-05-09 11:57] LABS: CARBAMAZEPINE (TEGRETOL) SO < 2.0 mg/L (4.0-12.0)
[2024-05-11 03:37] LABS: LEVETIRACETAM (KEPPRA) 29.2 mcg/mL (6.0-46.0)
== END ==
LOC: M PLALAB 10:13
PROVIDERS: ATTEND Family Medicine
DX: K70.9 Alcoholic liver disease, unspecified (principal); I50.20 Unspecified systolic (congestive) heart failure; R73.01 Impaired fasting glucose; G40.909 Epilepsy, unspecified, not intractable, without status epilepticus; E53.8 Deficiency of other specified B group vitamins; K59.09 Other constipation; E78.2 Mixed hyperlipidemia

== ENCOUNTER → 2024-09-25 | Outpatient (CLI) | payer MEDICARE ==
[~2024-09-25] MED LIST changes: +EPLE25TA15 PO; -EPLE25TA2 PO
[2024-09-25 13:17] LABS: ALBUMIN 4.3 G/DL (3.2-5.2); ALKALINE PHOSPHATASE 106 U/L (40-129); ALT/SGPT < 9 U/L (7.0-40); AST/SGOT 20 U/L (<34); BILIRUBIN,DIRECT 0.2 MG/DL (<0.4); BILIRUBIN,TOTAL 0.5 MG/DL (0.3-1.2); BLOOD UREA NITROGEN 33 MG/DL (9-23); CALCIUM LEVEL 10.3 MG/DL (8.3-10.6); CARBON DIOXIDE LEVEL 28 MMOL/L (20-31); CHLORIDE LEVEL 103 MMOL/L (98-107); GLOMERULAR FILTRATION RATE > 60.0 (>49); GLUCOSE, FASTING 128 MG/DL (74-106); MAGNESIUM LEVEL 2.1 MG/DL (1.8-2.4); POTASSIUM SERUM 4.7 MMOL/L (3.5-5.1); SODIUM LEVEL 138 MMOL/L (136-145); TOTAL PROTEIN 7.9 G/DL (5.7-8.2)
== END ==
LOC: M PLAIMG 09:40
DX: M47.814 Spondylosis without myelopathy or radiculopathy, thoracic region (principal); K74.00 Hepatic fibrosis, unspecified

== ENCOUNTER → 2024-12-17 | Outpatient (CLI) | payer MEDICARE | LOC: M RAD 08:57 | PROVIDERS: ATTEND Family Medicine | DX: K74.00 Hepatic fibrosis, unspecified (principal); K76.89 Other specified diseases of liver; N28.1 Cyst of kidney, acquired; I77.811 Abdominal aortic ectasia ==

== ENCOUNTER → 2025-01-21 | Outpatient (CLI) | payer MEDICARE ==
[~2025-01-21] MED LIST changes: +CYAN500T14 PO; -FLOM0.4C39 PO; +TAMS-18 PO
[2025-01-21 10:08] LABS: INR 1.19; PARTIAL THROMBOPLASTIN TIME 30.9 SECONDS (24.8-34.2); PROTHROMBIN TIME 15.4 SECONDS (12.5-14.5)
[2025-01-21 10:35] LABS: HEMATOCRIT 38.8 % (42.0-52.0)
[2025-01-21 10:36] LABS: BASO % 0.6 % (0.0-1.0); EOS % 0.2 % (0.0-3.0); HEMATOCRIT 38.8 % (42.0-52.0); HEMOGLOBIN 12.5 g/dl (13.5-17.5); LYMPH # 1.6 10^3/uL (1.5-5.0); LYMPH % 24.7 % (24.0-44.0); MEAN CORPUSCULAR HEMOGLOBIN 29.9 pg (27.0-33.0); MEAN CORPUSCULAR HGB CONC 32.2 g/dl (32.0-36.5); MEAN CORPUSCULAR VOLUME 92.8 fl (80.0-96.0); MONO # 0.5 10^3/uL (0.0-0.8); MONO % 6.8 % (2.0-8.0); NEUTROPHILS # 4.5 10^3/uL (1.5-8.5); NEUTROPHILS % 67.4 % (36.0-66.0); PLATELET COUNT, AUTOMATED 132 10^3/uL (150-450); RED BLOOD COUNT 4.18 10^6/uL (4.30-6.10); WHITE BLOOD COUNT 6.6 10^3/uL (4.0-10.0)
[2025-01-21 11:11] LABS: CHOLESTEROL LEVEL 160 MG/DL (<200); CHOLESTEROL RISK RATIO 2.66 (<5); LDL CHOLESTEROL 87.4 MG/DL (<100); PSA SCREENING 0.16 NG/ML (< 4.00); TRIGLYCERIDES LEVEL 63 MG/DL (<150)
[2025-01-21 11:12] LABS: FREE T4 1.01 NG/DL (0.89-1.76)
[2025-01-21 11:13] LABS: THYROID STIMULATING HORMONE 0.663 uIU/ML (0.55-4.78); TOTAL 25(OH) VITAMIN D 42.1 NG/ML (20.0-100.0)
[2025-01-21 11:14] LABS: VITAMIN B12 LEVEL 883 PG/ML (211-911)
[2025-01-21 11:34] LABS: FERRITIN 45.3 NG/ML (10.5-307.3)
== END ==
LOC: M PLALAB 08:39
PROVIDERS: ATTEND Family Medicine
DX: E55.9 Vitamin D deficiency, unspecified (principal); I50.20 Unspecified systolic (congestive) heart failure; K59.09 Other constipation; R73.01 Impaired fasting glucose; G40.909 Epilepsy, unspecified, not intractable, without status epilepticus; Z12.5 Encounter for screening for malignant neoplasm of prostate; K74.00 Hepatic fibrosis, unspecified; E53.8 Deficiency of other specified B group vitamins
CPT/HCPCS: 36415; 80061; 80177; 80183; 81517; 82105; 82306; 82607; 82728; 82747; 83036; 83880; 83970; 84439; 84443; 85025; 85610; 85730; G0103

== ENCOUNTER 2025-01-26 14:11 | Day surgery (SDC) | payer MEDICARE ==
[~2025-01-26] VITALS: Ht 175.3 cm; Wt 71.1 kg
[2025-01-26] MEDS ORDERED: fentaNYL 100 MCG/2 ML INJECTION As Ordered ONE (14:32)
[2025-01-26] MEDS ORDERED: MIDAZOLAM INJ 2MG/2ML VIAL As Ordered ONE (14:32)
[2025-01-26] MEDS ORDERED: ROCURONIUM BROMIDE 50MG/5ML VIAL As Ordered ONE (14:32)
[2025-01-26] MEDS ORDERED: LIDOCAINE 2% INJ 100 MG/5 ML SYRINGE As Ordered ONE (14:32)
[2025-01-26] MEDS ORDERED: propofoL 200 MG/20 ML VIAL As Ordered ONE (14:32)
[2025-01-26] MEDS ORDERED: ONDANSETRON 4MG 2ML VIAL As Ordered ONE (14:32)
[2025-01-26] MEDS ORDERED: LIDOCAINE 2% 100MG/5ML SDV (FOR ANES.) As Ordered ONE (14:35)
[2025-01-26] MEDS ORDERED: LR 1,000 ML IV SCH ×2 (14:55→17:10)
[2025-01-26] MEDS: CelecoXIB 400 MG CAP PO ONE (15:05)
[2025-01-26] MEDS ORDERED: ETOMIDATE INJ 20MG/10ML VIAL As Ordered ONE (15:29)
[2025-01-26] MEDS: ceFAZolin SOD 2 GM IV ONCE IV ONE (15:34)
[2025-01-26] MEDS ORDERED: PHENYLephrine 500MCG 5ML (100MCG/ML) SYRINGE As Ordered ONE (15:44)
[2025-01-26] MEDS ORDERED: ACETAMINOPHEN 1000MG/100ML IV BAG As Ordered ONE (15:44)
[2025-01-26] MEDS: LIDOCAINE 1% SDV 30ML VIAL As Ordered ONE (17:06)
[2025-01-26] MEDS ORDERED: SUGAMMADEX SODIUM 500 MG/5 ML VIAL As Ordered ONE (17:07)
[2025-01-26] MEDS ORDERED: fentaNYL 100 MCG/2 ML INJECTION IV PRN (17:10)
[2025-01-26] MEDS ORDERED: ONDANSETRON 4MG 2ML VIAL IV PRN (17:10)
[2025-01-26] MEDS ORDERED: HYDROMORPHONE HCL 0.5 MG/ 0.5 ML SYRINGE IV PRN (17:10)
[2025-01-26] MEDS ORDERED: oxyCODONE 5MG TAB PO PRN (17:10)
[2025-01-26 18:24] VITALS: BP 109/60; TEMP 97.1; O2SAT 97
== END 2025-01-26 18:31 | disposition home or self-care (01) ==
LOC: M SDC 14:11
PROVIDERS: ATTEND Surgery
DX: K40.90 Unilateral inguinal hernia, without obstruction or gangrene, not specified as recurrent (principal); K66.0 Peritoneal adhesions (postprocedural) (postinfection); I48.91 Unspecified atrial fibrillation; I25.10 Atherosclerotic heart disease of native coronary artery without angina pectoris; I10 Essential (primary) hypertension; I25.2 Old myocardial infarction; Z95.5 Presence of coronary angioplasty implant and graft; Z95.0 Presence of cardiac pacemaker; Z95.1 Presence of aortocoronary bypass graft; Z86.73 Personal history of transient ischemic attack (TIA), and cerebral infarction without residual deficits; Z79.899 Other long term (current) drug therapy
CPT/HCPCS: 49650; C1781; J0131; J0665; J0690; J1100; J2250; J2371; J2405; J3010; S2900

== ENCOUNTER 2025-07-30 15:39 | Observation (INO) | payer MEDICAID, MEDICARE, OTHER ==
[~2025-07-30] VITALS: Ht 177.8 cm; Wt 76.5 kg
[~2025-07-30 15:39] MED LIST changes: -PRAV40TA2 PO; +PRAV40TA85 PO
[2025-07-30 16:22] LABS: BASO # 0.1 10^3/uL (0.0-0.2); BASO % 0.8 % (0.0-1.0); EOS # 0.0 10^3/uL (0.0-0.5); EOS % 0.3 % (0.0-3.0); LYMPH # 1.6 10^3/uL (1.5-5.0); LYMPH % 24.7 % (24.0-44.0); MONO # 0.4 10^3/uL (0.0-0.8); MONO % 6.1 % (2.0-8.0); NEUTROPHILS # 4.3 10^3/uL (1.5-8.5); NEUTROPHILS % 67.9 % (36.0-66.0); PLATELET COUNT, AUTOMATED 127 10^3/uL (150-450)
[2025-07-30 16:43] LABS: CALCIUM LEVEL 8.9 MG/DL (8.3-10.6); CARBON DIOXIDE LEVEL 26 MMOL/L (20-31); CHLORIDE LEVEL 108 MMOL/L (98-107); CREATININE FOR GFR 0.92 MG/DL (0.70-1.30); GLOMERULAR FILTRATION RATE > 90.0 (>49); POTASSIUM SERUM 3.7 MMOL/L (3.5-5.1); SODIUM LEVEL 144 MMOL/L (136-145)
[2025-07-30 20:04] LABS: MAGNESIUM LEVEL 1.8 MG/DL (1.8-2.4)
[2025-07-30] MEDS: levETIRAcetam INJection 1,500 MG in IV 1 EA IV ONE (22:10)
[2025-07-30] MEDS ORDERED: KEPP250T5 PO (22:27)
[2025-07-31] MEDS ORDERED: ISOVUE-370 76% 100 ML VIAL As Ordered ONE (00:01)
[2025-07-31 00:50] LABS: CK-MB VALUE MASS 3.3 NG/ML (<3.6)
[2025-07-31 00:59] LABS: CPK CREATINE PHOSPHOKINASE 147.0 U/L (46-171); MB/CK RELATIVE INDEX 2.24 (< OR =4)
[2025-07-31] MEDS: NS (Normal Saline) 0.9% 1,000 ML IV ONE (01:18)
[2025-07-31] MEDS ORDERED: MOM 30 ML SUSPENSION UDC PO PRN (03:30)
[2025-07-31] MEDS ORDERED: ONDANSETRON 4MG/2ML VIAL IV PRN (03:30)
[2025-07-31 04:35] LABS: AMPHETAMINES LEVEL URINE NEGATIVE (NEGATIVE); BARBITURATES URINE NEGATIVE (NEGATIVE); BENZODIAZEPINES URINE NEGATIVE (NEGATIVE); COCAINE METABOLITE URINE NEGATIVE (NEGATIVE); METHADONE URINE NEGATIVE (NEGATIVE); OPIATES URINE NEGATIVE (NEGATIVE); PHENCYCLIDINE URINE NEGATIVE (NEGATIVE)
[2025-07-31 04:39] LABS: CANNABINOIDS URINE POSITIVE (NEGATIVE)
[2025-07-31 04:50] LABS: ETHYL ALCOHOL (ETHANOL) 0.003 % (0.000-0.010)
[2025-07-31 05:21] VITALS: BP 138/88; TEMP 99.2; O2SAT 96
[2025-07-31] MEDS: ACETAMINOPHEN 325 MG TAB PO PRN (05:49)
[2025-07-31] MEDS ORDERED: CYAN-1 PO (08:35)
[2025-07-31] MEDS ORDERED: HOME MED LIST COMPLETE! XX SCH (08:40)
[2025-07-31] MEDS: APIXABAN 5 MG TAB PO SCH (09:36)
[2025-07-31 09:38] VITALS: BP 131/83; TEMP 99.1; O2SAT 95
[2025-07-31 10:53] LABS: CALCIUM LEVEL 8.8 MG/DL (8.3-10.6); CARBON DIOXIDE LEVEL 22 MMOL/L (20-31); CHLORIDE LEVEL 110 MMOL/L (98-107); CREATININE FOR GFR 0.84 MG/DL (0.70-1.30); GLOMERULAR FILTRATION RATE > 90.0 (>49); POTASSIUM SERUM 3.6 MMOL/L (3.5-5.1); SODIUM LEVEL 142 MMOL/L (136-145)
[2025-07-31 11:56] VITALS: BP 136/82; TEMP 98.5; O2SAT 98
[2025-07-31] MEDS ORDERED: KEPP250T5 PO (15:21)
== END 2025-07-31 15:52 | disposition home or self-care (01) ==
LOC: EDBD 15:39 → M ED 15:39 → M ED INP 15:40 → M MSPAV 07-31 05:07
PROVIDERS: ADMIT Internal Medicine; ATTEND Student in an Organized Health Care Education/Training Program
DX: G40.909 Epilepsy, unspecified, not intractable, without status epilepticus (principal); V43.52XA Car driver injured in collision with other type car in traffic accident, initial encounter; Y92.410 Unspecified street and highway as the place of occurrence of the external cause; I25.10 Atherosclerotic heart disease of native coronary artery without angina pectoris; Z95.1 Presence of aortocoronary bypass graft; Z95.0 Presence of cardiac pacemaker; I48.0 Paroxysmal atrial fibrillation; R00.0 Tachycardia, unspecified; F10.11 Alcohol abuse, in remission; K50.90 Crohn's disease, unspecified, without complications; I50.9 Heart failure, unspecified; I11.0 Hypertensive heart disease with heart failure; Z86.73 Personal history of transient ischemic attack (TIA), and cerebral infarction without residual deficits; R55 Syncope and collapse; N40.0 Benign prostatic hyperplasia without lower urinary tract symptoms; Z63.32 Other absence of family member; Z90.89 Acquired absence of other organs; Z90.49 Acquired absence of other specified parts of digestive tract; Z79.899 Other long term (current) drug therapy; Z79.01 Long term (current) use of anticoagulants; Z79.82 Long term (current) use of aspirin
CPT/HCPCS: 36415; 70450; 71275; 72125; 72131; 74177; 80048; 80177; 80183; 80307; 82077; 82550; 82553; 83735; 84484; 85025; 87486; 87581; 87633; 87798; 93005; 96361; 96365; 99285; J1953; Q9967